=== PATIENT | female | born 1955 | race American Indian/Alaskan Native ===

== ENCOUNTER 2019-11-25 12:17 | Emergency (ER) | payer MEDICARE ==
[2019-11-25 13:49] LABS: Basophils # (Auto) 0.1 K/mm3 (0.0-0.1); Basophils % (Auto) 0.7 % (0.0-1.8); Eosinophils % (Auto) 0.4 % (0.0-4.3); Hematocrit 41.9 % (30.3-42.9); Hemoglobin 13.4 gm/dl (10.1-14.3); Lymphocytes # (Auto) 2.2 K/mm3 (1.2-5.4); Lymphocytes % (Auto) 31.4 % (13.4-35.0); Mean Corpuscular HGB Conc 32 % (30-34); Mean Corpuscular Volume 78 fl (79-97); Monocytes # (Auto) 0.4 K/mm3 (0.0-0.8); Monocytes % (Auto) 5.9 % (0.0-7.3); Platelet Count 250 K/mm3 (140-440); Red Blood Count 5.35 M/mm3 (3.65-5.03); Red Cell Distribution Width 14.7 % (13.2-15.2)
[2019-11-25 14:01] LABS: Bacteria,Urine 1+ /HPF (Negative); Bilirubin,Urine NEG (Negative); Blood,Urine NEG (Negative); Color,Urine Yellow (Yellow); Mucus,Urine FEW /HPF; Protein,Urine <15 mg/dL mg/dL (Negative); Urobilinogen,Urine < 2.0 mg/dL (<2.0)
[2019-11-25 14:04] LABS: BUN/Creatinine Ratio 14; Blood Urea Nitrogen 13 mg/dL (7-17); Calcium 10.6 mg/dL (8.4-10.2); Hemolysis Index 0
[2019-11-25 14:09] LABS: Amphetamine Screen,Urine PRESUMPTIVE NEGATIVE; Benzodiazepines Screen,Urine PRESUMPTIVE NEGATIVE; Cannabinoid Screen,Urine PRESUMPTIVE NEGATIVE; Cocaine Screen,Urine PRESUMPTIVE NEGATIVE; Methadone Screen,Urine PRESUMPTIVE NEGATIVE; Opiate Screen,Urine PRESUMPTIVE NEGATIVE
--- NOTE | 2019-11-25 14:13 | Emergency Department Report ---
ED Psych HPI - General Chief Complaint: Psych Stated Complaint: PSYCH EVAL Time Seen by Provider: 11/25/19 14:05 Source: patient Mode of arrival: Ambulatory - History of Present Illness Initial Comments: 64-year-old -[place] female presents to the emergency room reports from [facility] states that she was exhibiting aggressive behavior and has been off her meds. Patient has a current history of schizophrenia hypertension hypercholesterolemia. Patient resides at [facility]. It was sent over from [facility] [employer] - Related Data Home Medications Medication Instructions Recorded Confirmed Last Taken FLUoxetine [PROzac] 20 mg PO QDAY 03/26/16 05/14/16 Unknown Allergies Allergy/AdvReac Type Severity Reaction Status Date / Time No Known Allergies Allergy Unverified 03/28/16 11:16 ED Review of Systems ROS: Stated complaint: PSYCH EVAL Other details as noted in HPI ED Past Medical Hx - Past Medical History Previous Medical History?: Yes Hx Hypertension: Yes Hx Diabetes: Yes Hx GERD: Yes Hx Arthritis: Yes Hx Psychiatric Treatment: Yes (schizophrenia) Additional medical history: schz. high cholesterol. fibro - Surgical History Past Surgical History?: Yes Additional Surgical History: Bilateral tubal ligation - Social History Smoking Status: Never Smoker Substance Use Type: None - Medications Home Medications: Home Medications Medication Instructions Recorded Confirmed Last Taken Type FLUoxetine [PROzac] 20 mg PO QDAY 03/26/16 05/14/16 Unknown History ED Physical Exam - General Limitations: No Limitations ED Course Vital Signs 11/25/19 12:31 Temperature 97.5 F L Pulse Rate 118 H Respiratory 18 Rate Blood Pressure 180/77 O2 Sat by Pulse 100 Oximetry ED Medical Decision Making - Lab Data Result diagrams: 11/25/19 13:10 11/25/19 13:10 Critical care attestation.: If time is entered above; I have spent that time in minutes in the direct care of this critically ill patient, excluding procedure time. ED Disposition Condition: Stable
[2019-11-25 20:01] VITALS: BP 165/87
== END 2019-11-25 23:24 | disposition other institution (70) ==
LOC: ED 12:17
DX: R45.6 Violent behavior (principal); I10 Essential (primary) hypertension; E11.9 Type 2 diabetes mellitus without complications; K21.9 Gastro-esophageal reflux disease without esophagitis; M19.91 Primary osteoarthritis, unspecified site; F20.9 Schizophrenia, unspecified; E78.00 Pure hypercholesterolemia, unspecified; Z98.51 Tubal ligation status; Z79.899 Other long term (current) drug therapy
CPT/HCPCS: 36415; 80048; 80307; 80320; 81001; 85025; G0480

== ENCOUNTER 2020-01-19 17:53 | Inpatient (IN) | payer MEDICARE ==
[2020-01-19] MEDS: traZODone 50 MG TAB PO SCH ×2 (22:43→23:39)
[2020-01-19] MEDS: DIVALPROEX DR 500 MG TAB PO SCH ×2 (22:43→23:39)
[2020-01-19] MEDS: ASPIRIN 81 MG TAB CHEW PO SCH ×2 (22:43→23:42)
[2020-01-19] MEDS: amLODIPine 5 MG TAB PO SCH ×2 (22:44→23:40)
[2020-01-19] MEDS: risperiDONE 3 MG TAB PO SCH ×2 (22:44→23:41)
[2020-01-19] MEDS ORDERED: WATER FOR INJ Sterile (PF) 10 ML ONE (23:10)
[2020-01-19] MEDS ORDERED: ZIPRASIDONE MESYLATE 20 MG VIAL IM PRN (23:14)
--- NOTE | 2020-01-20 08:04 | Consultation ---
History of Present Illness - Reason for Consult Consult date: 01/20/20 Reason for consult: Paranoid Schizophrenia - History of Present Psychiatric Illness Siobhan Guido is a 64y/o female patient who was admitted to the [facility] after the personal senior living she was staying says she refused her medications and was paranoid, per nurse report this morning. The patient is known to me from previous visits. During my interview this morning, I found the patient sitting on the floor. She was dressed appropriately. She states she's feeling "fine." She makes good eye contact. She is a/o x 3. She has grandiose delusions. When asking the patient the the reason she was admitted into the hospital, she states, "my daughter, who is my legal guardian, brought me here. She had no business doing that because I had an appointment with my psychiatrist." She then says, "my psychiatrist was about to clear me of their services." The patient denies any psych diagnosis besides "depression." She says she was "cleared of all other psychiatric diagnoses." She denies any illicit drug use, alcohol or nicotine use. She denies being suicidal now or in the past. She also denies any homicidal thoughts. 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 The patient also denies any problems with her appetite or sleep pattern. 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" Highest level of education: "PHd dissertation" Marital status: Legal history: Denies History of abuse: Denies REVIEW OF SYSTEMS Constitutional: Negative for weight loss ENT: Negative for stridor Respiratory: Negative for cough or hemoptysis All other systems reviewed and are negative MENTAL STATUS EXAMINATION General Appearance: Dressed appropriately Behavior: calm, cooperative Mood: "fine" Affect: Congruent with stated mood Speech: Normal tone and pace Thought Process: Goal oriented Thought Content: Suicidal Ideation: Denies Homicidal Ideation: Denies Hallucinations: Denies Delusions: Grandiose Insight and Judgment: Limited Memory/Cognition: Limited Assessment Paranoid Schizophrenia Treatment Plan Patient will be admitted for inpatient psychiatric evaluation, medication adjustment and close monitoring The patient's behavior, mood, sleep and appetite will be closely monitored. Patient will be enrolled in individual and group therapeutic sessions and encouraged to attend. Patient will be provided with a safe and structured environment. Patient's physical health needs will be addressed by the Hospitalist. Hospitalist Consulted Labs including CBC, CMP, Lipid profile and Hemoglobin A1C ordered Social Assessment will be completed and the B2B Sales Manager will work with patient and family to ensure a suitable and safe disposition Medication adjustment will be made as clinically indicated Usual Wellness Worship/Preservation: Restarted Home medications Geodon 10mg q4h prn agitation or refusal of oral antipsychotics The patient agreed on the treatment plan, understood the risk, benefit, alternative treatment, potential consequence of no treatment, and gave informed consent. - Certification Statement This is an acknowledgement statement that Siobhan Guido is a 64y/o female who requires inpatient psychiatric admission for treatment which could reasonably be expected to improve the patient's condition for Paranoid Schizophrenia. Estimated period of time patient will need to remain in the hospital: [7] Plan for post-hospital care: [ Outpatient] Medications and Allergies Allergies Allergy/AdvReac Type Severity Reaction Status Date / Time No Known Allergies Allergy Verified 01/19/20 11:50 Home Medications Medication Instructions Recorded Confirmed Last Taken Type Amlodipine Besylate [Norvasc] 5 mg PO QHS 11/26/19 11/26/19 Unknown History Aspirin [Aspirin BABY CHEW TAB] 81 mg PO QHS 11/26/19 11/26/19 Unknown History Potassium Chloride [K-Dur] 8 meq PO QAM 11/26/19 11/26/19 Unknown History hydroCHLOROthiazide [HCTZ] 12.5 mg PO QDAY 11/26/19 01/20/20 Unknown History lisinopriL [Zestril TAB] 40 mg PO QDAY 11/26/19 01/20/20 Unknown History Divalproex [Harshil Zapata] 500 mg PO BID #60 tablet 12/13/19 Unknown Rx FLUoxetine [PROzac] 40 mg PO QDAY #60 capsule 12/13/19 01/20/20 Unknown Rx risperiDONE [RisperDAL] 3 mg PO BID #120 tablet 12/13/19 01/20/20 Unknown Rx traZODone [Desyrel] 50 mg PO QHS #30 tablet 12/13/19 01/20/20 Unknown Rx Active Meds: Active Medications Amlodipine Besylate (Amlodipine) 5 mg PO QHS [facility] Last Admin: 01/19/20 23:40 Dose: Not Given Documented by: Aspirin (Baby Aspirin) 81 mg PO QHS [facility] Last Admin: 01/19/20 23:42 Dose: Not Given Documented by: Divalproex Sodium (Depakote Dr) 500 mg PO BID [facility] Last Admin: 01/19/20 23:39 Dose: Not Given Documented by: Fluoxetine HCl (Prozac) 40 mg PO QDAY [facility] Hydrochlorothiazide (Hctz) 12.5 mg PO QDAY [facility] Lisinopril (Zestril) 40 mg PO QDAY [facility] Potassium Chloride (Klor-Con 8) 8 meq PO QAM [facility] Risperidone (Risperdal) 3 mg PO BID [facility] Last Admin: 01/19/20 23:41 Dose: Not Given Documented by: Trazodone HCl (Desyrel) 50 mg PO QHS [facility] Last Admin: 01/19/20 23:39 Dose: Not Given Documented by: Ziprasidone (Geodon) 10 mg IM Q4H PRN PRN Reason: Agitation Last Admin: 01/19/20 23:36 Dose: 10 mg Documented by: Mental Status Exam - Vital signs Last Vital Signs Temp 99.0 F 01/19/20 22:42 Pulse 86 01/19/20 22:42 Resp 18 01/19/20 22:42 BP 147/76 01/19/20 22:42 Pulse Ox 99 01/19/20 22:42 Results All other labs normal.
[2020-01-20] MEDS ORDERED: ZIPRASIDONE MESYLATE 20 MG VIAL IM PRN (08:44)
[2020-01-20] MEDS: DIVALPROEX DR 500 MG TAB PO SCH ×2 (10:46→21:21)
[2020-01-20] MEDS: hydroCHLOROthiazide 12.5 MG CAP PO SCH (11:56)
[2020-01-20] MEDS: FLUoxetine 20 MG CAP PO SCH (11:57)
[2020-01-20] MEDS: risperiDONE 3 MG TAB PO SCH ×2 (11:57→21:21)
[2020-01-20] MEDS: LISINOPRIL 40 MG TAB PO SCH (11:57)
[2020-01-20] MEDS: POTASSIUM CHLORIDE ER 8 MEQ TAB PO SCH (11:57)
--- NOTE | 2020-01-20 13:40 | Consultation ---
History of Present Illness - Reason for Consult Consult date: 01/20/20 - History of Present Illness Siobhan Guido is a 64y/o female patient who was admitted to the [facility] floor after the personal snf she was staying says she refused her medications and was paranoid, per nurse report this morning. Patient had an admitting diagnosis of major depression. Patient denies any suicide attempts or self-harm behavior. Hospitalist consult was called for medical management. Patient has a past medical history of osteoarthritis, fibromyalgia, hypertension and obesity hypoventilation syndrome. Patient denies having to take any medications. Patient reports that she manages her medical problems without medications. Patient denies any chest pain, shortness of breath, headache or visual disturbances. No fever chills. No cough or cold-like symptoms. Past History Past Medical History: hypertension, other (Osteoarthritis, fibromyalgia, obesity hypoventilation syndrome) Past Surgical History: No surgical history Social history: no significant social history Family history: no significant family history Medications and Allergies Allergies Allergy/AdvReac Type Severity Reaction Status Date / Time No Known Allergies Allergy Verified 01/19/20 11:50 Home Medications Medication Instructions Recorded Confirmed Last Taken Type Amlodipine Besylate [Norvasc] 5 mg PO QHS 11/26/19 11/26/19 Unknown History Aspirin [Aspirin BABY CHEW TAB] 81 mg PO QHS 11/26/19 11/26/19 Unknown History Potassium Chloride [K-Dur] 8 meq PO QAM 11/26/19 11/26/19 Unknown History hydroCHLOROthiazide [HCTZ] 12.5 mg PO QDAY 11/26/19 01/20/20 Unknown History lisinopriL [Zestril TAB] 40 mg PO QDAY 11/26/19 01/20/20 Unknown History Divalproex [Harshil Zapata] 500 mg PO BID #60 tablet 12/13/19 Unknown Rx FLUoxetine [PROzac] 40 mg PO QDAY #60 capsule 12/13/19 01/20/20 Unknown Rx risperiDONE [RisperDAL] 3 mg PO BID #120 tablet 12/13/19 01/20/20 Unknown Rx traZODone [Desyrel] 50 mg PO QHS #30 tablet 12/13/19 01/20/20 Unknown Rx Active Meds: Active Medications Amlodipine Besylate (Amlodipine) 5 mg PO QHS [facility] Last Admin: 01/19/20 23:40 Dose: Not Given Documented by: Aspirin (Baby Aspirin) 81 mg PO QHS [facility] Last Admin: 01/19/20 23:42 Dose: Not Given Documented by: Divalproex Sodium (Depakote Dr) 500 mg PO BID [facility] Last Admin: 01/20/20 10:46 Dose: Not Given Documented by: Fluoxetine HCl (Prozac) 40 mg PO QDAY [facility] Last Admin: 01/20/20 11:57 Dose: Not Given Documented by: Hydrochlorothiazide (Hctz) 12.5 mg PO QDAY [facility] Last Admin: 01/20/20 11:56 Dose: Not Given Documented by: Lisinopril (Zestril) 40 mg PO QDAY [facility] Last Admin: 01/20/20 11:57 Dose: Not Given Documented by: Potassium Chloride (Klor-Con 8) 8 meq PO [facility] Last Admin: 01/20/20 11:57 Dose: Not Given Documented by: Risperidone (Risperdal) 3 mg PO BID [facility] Last Admin: 01/20/20 11:57 Dose: Not Given Documented by: [facility]) [facility] Last Admin: 01/19/20 23:39 Dose: Not Given Documented by: Ziprasidone (Geodon) 10 mg IM Q4H PRN PRN Reason: Agitation Review of Systems All systems: negative Exam - Constitutional Vitals: Temp Pulse Resp BP Pulse Ox 99.0 F 86 18 147/76 99 01/19/20 22:42 01/19/20 22:42 01/19/20 22:42 01/19/20 22:42 01/19/20 22:42 General appearance: Present: no acute distress, well-nourished - EENT Eyes: Present: PERRL ENT: hearing intact, clear oral mucosa - Neck Neck: Present: supple, normal ROM - Respiratory Respiratory effort: normal Respiratory: bilateral: CTA - Cardiovascular Heart Sounds: Present: S1 & S2. Absent: rub, click - Extremities Extremities: pulses symmetrical, No edema Peripheral Pulses: within normal limits - Abdominal General gastrointestinal: Present: soft, non-tender, non-distended, normal bowel sounds Female genitourinary: Present: normal - Integumentary Integumentary: Present: clear, warm, dry - Musculoskeletal Musculoskeletal: gait normal, strength equal bilaterally - Psychiatric Psychiatric: appropriate mood/affect, intact judgment & insight - Neurologic Neurologic: CNII-XII intact, moves all extremities Assessment and Plan Major depression. Continue medications per psychiatry. Hypertension. Continue lisinopril, hydrochlorothiazide and Norvasc. Follow-up BMP. Osteoarthritis. Pain control.
[2020-01-20 16:42] LABS: Basophils # (Auto) 0.1 K/mm3 (0.0-0.1); Basophils % (Auto) 0.7 % (0.0-1.8); Eosinophils % (Auto) 0.6 % (0.0-4.3); Hematocrit 40.8 % (30.3-42.9); Lymphocytes # (Auto) 2.2 K/mm3 (1.2-5.4); Lymphocytes % (Auto) 28.6 % (13.4-35.0); Mean Corpuscular HGB Conc 32 % (30-34); Mean Corpuscular Volume 77 fl (79-97); Monocytes # (Auto) 0.6 K/mm3 (0.0-0.8); Monocytes % (Auto) 8.4 % (0.0-7.3); Platelet Count 259 K/mm3 (140-440); Red Blood Count 5.29 M/mm3 (3.65-5.03); Red Cell Distribution Width 16.1 % (13.2-15.2)
[2020-01-20 16:57] LABS: Alanine Aminotransferase 7 units/L (7-56); Albumin 4.1 g/dL (3.9-5); BUN/Creatinine Ratio 12; Blood Urea Nitrogen 12 mg/dL (7-17); Calcium 10.5 mg/dL (8.4-10.2); Chol/HDL Ratio 3.26 %; HDL Cholesterol 61 mg/dL (40-59); Hemolysis Index 1; LDL Cholesterol,Direct 133 mg/dL (50-130)
[2020-01-20] MEDS: amLODIPine 5 MG TAB PO SCH (21:19)
[2020-01-20] MEDS: ASPIRIN 81 MG TAB CHEW PO SCH (21:20)
[2020-01-20] MEDS: traZODone 50 MG TAB PO SCH (21:21)
--- NOTE | 2020-01-21 07:44 | Progress Note ---
Subjective Date of service: 01/21/20 Principal diagnosis: Paranoid Schizophrenia Subjective Comment: The patient's medical record was reviewed and the patient's progress was discussed with the nursing staff. The nurse note states the patient is alert and oriented x 3, irritable, able to make needs known, medication compliant. The patient took medication after encouragement. She stated we are giving her wrong medication that her pcp took her off medication. Disorganized thoughts. She ate 100% of bedtime snack.She denies si/hi, denies a/v/h. The patient stated that her daughter brought her here for no reason. Her affect is flat. During my interview the patient is sitting in the dayroom, coloring. She is a/o x 3. She is calm and cooperative, but never looks up at me. She continues on with her task during the interview. The patient is paranoid and delusional. She says she "feels better." She says she's here because "my daughter been telling her regular lies about me." She says, "I have no idea what lies they told them this time." She says "they say I'm not taking medications that I don't have." She says she slept "good." She denies any problems with her appetite. The patient denies SI/HI, stating "I've never been suicidal." She also denies hallucinations of any kind. She says, "of course not. I don't have any mental illness." Reason for continued inpatient treatment: The patient is paranoid and delusional. She is noncompliant with care. REVIEW OF SYSTEMS Constitutional: Negative for weight loss ENT: Negative for stridor Respiratory: Negative for cough or hemoptysis All other systems reviewed and are negative MENTAL STATUS EXAMINATION General Appearance: Dressed appropriately Behavior: calm, cooperative Mood: "feel better" Affect: Congruent with stated mood Speech: Normal tone and pace Thought Process: Goal oriented Thought Content: Suicidal Ideation: Denies Homicidal Ideation: Denies Hallucinations: Denies Delusions: Grandiose, paranoid Insight and Judgment: Limited Memory/Cognition: Limited Assessment Paranoid Schizophrenia Treatment Plan Patient will be admitted for inpatient psychiatric evaluation, medication adjustment and close monitoring The patient's behavior, mood, sleep and appetite will be closely monitored. Patient will be enrolled in individual and group therapeutic sessions and encouraged to attend. Patient will be provided with a safe and structured environment. Patient's physical health needs will be addressed by the Hospitalist. Hospitalist Consulted Labs including CBC, CMP, Lipid profile and Hemoglobin A1C ordered Social Assessment will be completed and the Personnel Monitor will work with patient and family to ensure a suitable and safe disposition Medication adjustment will be made as clinically indicated Usual Wellness [facility]aritan/Preservation: No changes to medications after restarting home meds. They patient has been off her home medications which has caused her relapse. Geodon 10mg q4h prn agitation or refusal of oral antipsychotics The patient agreed on the treatment plan, understood the risk, benefit, alternative treatment, potential consequence of no treatment, and gave informed consent. - Certification Statement Estimated period of time patient will need to remain in the hospital: [7] Plan for post-hospital care: [ Outpatient] Medications and Allergies Allergies Allergy/AdvReac Type Severity Reaction Status Date / Time No Known Allergies Allergy Verified 01/19/20 11:50 Home Medications Medication Instructions Recorded Confirmed Last Taken Type Amlodipine Besylate [Norvasc] 5 mg PO QHS 11/26/19 01/21/20 Unknown History Aspirin [Aspirin BABY CHEW TAB] 81 mg PO QHS 11/26/19 01/21/20 Unknown History Potassium Chloride [K-Dur] 8 meq PO QAM 11/26/19 01/21/20 Unknown History hydroCHLOROthiazide [HCTZ] 12.5 mg PO QDAY 11/26/19 01/20/20 Unknown History lisinopriL [Zestril TAB] 40 mg PO QDAY 11/26/19 01/20/20 Unknown History Divalproex [Harshil Zapata] 500 mg PO BID #60 tablet 12/13/19 01/21/20 Unknown Rx FLUoxetine [PROzac] 40 mg PO QDAY #60 capsule 12/13/19 01/20/20 Unknown Rx risperiDONE [RisperDAL] 3 mg PO BID #120 tablet 12/13/19 01/20/20 Unknown Rx traZODone [Desyrel] 50 mg PO QHS #30 tablet 12/13/19 01/20/20 Unknown Rx Active Meds: Active Medications Amlodipine Besylate (Amlodipine) 5 mg PO QHS [facility] Last Admin: 01/20/20 21:19 Dose: 5 mg Documented by: Aspirin (Baby Aspirin) 81 mg PO QHS [facility] Last Admin: 01/20/20 21:20 Dose: 81 mg Documented by: Divalproex Sodium (Depakote Dr) 500 mg PO BID [facility] Last Admin: 01/20/20 21:21 Dose: 500 mg Documented by: Fluoxetine HCl (Prozac) 40 mg PO QDAY [facility] Last Admin: 01/20/20 11:57 Dose: Not Given Documented by: Hydrochlorothiazide (Hctz) 12.5 mg PO QDAY [facility] Last Admin: 01/20/20 11:56 Dose: Not Given Documented by: Lisinopril (Zestril) 40 mg PO QDAY [facility] Last Admin: 01/20/20 11:57 Dose: Not Given Documented by: Potassium Chloride (Klor-Con 8) 8 meq PO [facility] Last Admin: 01/20/20 11:57 Dose: Not Given Documented by: Risperidone (Risperdal) 3 mg PO BID [facility] Last Admin: 01/20/20 21:21 Dose: 3 mg Documented by: Trazodone HCl (Desyrel) 50 mg PO QHS [facility] Last Admin: 01/20/20 21:21 Dose: 50 mg Documented by: Ziprasidone (Geodon) 10 mg IM Q4H PRN PRN Reason: Agitation Results - Results Labs/Vitals: Laboratory Last Values WBC 7.6 K/mm3 (4.5-11.0) 01/20/20 16:25 RBC 5.29 M/mm3 (3.65-5.03) H 01/20/20 16:25 Hgb 13.0 gm/dl (10.1-14.3) 01/20/20 16:25 Hct 40.8 % (30.3-42.9) 01/20/20 16:25 MCV 77 fl (79-97) L 01/20/20 16:25 MCH 25 pg (28-32) L 01/20/20 16:25 MCHC 32 % (30-34) 01/20/20 16:25 RDW 16.1 % (13.2-15.2) H 01/20/20 16:25 Plt Count 259 K/mm3 (140-440) 01/20/20 16:25 Lymph % (Auto) 28.6 % (13.4-35.0) 01/20/20 16:25 [place] % (Auto) 8.4 % (0.0-7.3) H 01/20/20 16:25 Eos % (Auto) 0.6 % (0.0-4.3) 01/20/20 16:25 Baso % (Auto) 0.7 % (0.0-1.8) 01/20/20 16:25 Lymph # 2.2 K/mm3 (1.2-5.4) 01/20/20 16:25 [place] # 0.6 K/mm3 (0.0-0.8) 01/20/20 16:25 Eos # 0.0 K/mm3 (0.0-0.4) 01/20/20 16:25 Baso # 0.1 K/mm3 (0.0-0.1) 01/20/20 16:25 Seg Neutrophils % 61.7 % (40.0-70.0) 01/20/20 16:25 Seg Neutrophils # 4.7 K/mm3 (1.8-7.7) 01/20/20 16:25 Sodium 139 mmol/L (137-145) 01/20/20 16:25 Potassium 3.7 mmol/L (3.6-5.0) 01/20/20 16:25 Chloride 102.3 mmol/L (98-107) 01/20/20 16:25 Carbon Dioxide 24 mmol/L (22-30) 01/20/20 16:25 Anion Gap 16 mmol/L 01/20/20 16:25 BUN 12 mg/dL (7-17) 01/20/20 16:25 Creatinine 1.0 mg/dL (0.7-1.2) 01/20/20 16:25 Estimated GFR > 60 ml/min 01/20/20 16:25 BUN/Creatinine Ratio 12 % 01/20/20 16:25 Glucose 97 mg/dL (65-100) 01/20/20 16:25 POC Glucose 103 (70-105) 01/21/20 06:56 Hemoglobin A1c 6.2 % (4-6) H 01/20/20 16:25 Calcium 10.5 mg/dL (8.4-10.2) H 01/20/20 16:25 Total Bilirubin 0.40 mg/dL (0.1-1.2) 01/20/20 16:25 AST 15 units/L (5-40) 01/20/20 16:25 ALT 7 units/L (7-56) 01/20/20 16:25 Alkaline Phosphatase 63 units/L (35-129) 01/20/20 16:25 Total Protein 8.0 g/dL (6.3-8.2) 01/20/20 16:25 Albumin 4.1 g/dL (3.9-5) 01/20/20 16:25 Albumin/Globulin Ratio 1.1 % 01/20/20 16:25 Triglycerides 63 mg/dL (2-149) 01/20/20 16:25 Cholesterol 199 mg/dL (50-199) 01/20/20 16:25 LDL Cholesterol Direct 133 mg/dL (50-130) H 01/20/20 16:25 HDL Cholesterol 61 mg/dL (40-59) H 01/20/20 16:25 Cholesterol/HDL Ratio 3.26 % 01/20/20 16:25 TSH 1.680 mlU/mL (0.270-4.200) 01/20/20 16:25 Last Vital Signs Temp 97.5 F L 01/21/20 07:35 Pulse 89 01/21/20 07:35 Resp 18 01/21/20 07:35 BP 126/52 01/21/20 07:35 Pulse Ox 99 01/21/20 07:35
[2020-01-21] MEDS: FLUoxetine 20 MG CAP PO SCH (09:34)
[2020-01-21] MEDS: POTASSIUM CHLORIDE ER 8 MEQ TAB PO SCH (09:34)
[2020-01-21] MEDS: LISINOPRIL 40 MG TAB PO SCH (09:34)
[2020-01-21] MEDS: hydroCHLOROthiazide 12.5 MG CAP PO SCH (09:35)
[2020-01-21] MEDS: DIVALPROEX DR 500 MG TAB PO SCH ×2 (09:35→21:08)
[2020-01-21] MEDS: risperiDONE 3 MG TAB PO SCH ×2 (09:35→21:08)
[2020-01-21] MEDS: amLODIPine 5 MG TAB PO SCH (21:08)
[2020-01-21] MEDS: traZODone 50 MG TAB PO SCH (21:08)
[2020-01-21] MEDS: ASPIRIN 81 MG TAB CHEW PO SCH (21:08)
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
[2020-01-22] MEDS: FLUoxetine 20 MG CAP PO SCH (09:02)
[2020-01-22] MEDS: DIVALPROEX DR 500 MG TAB PO SCH ×2 (09:03→21:21)
[2020-01-22] MEDS: POTASSIUM CHLORIDE ER 8 MEQ TAB PO SCH (09:04)
[2020-01-22] MEDS: LISINOPRIL 40 MG TAB PO SCH (09:04)
[2020-01-22] MEDS: risperiDONE 3 MG TAB PO SCH ×2 (09:04→21:22)
[2020-01-22] MEDS: hydroCHLOROthiazide 12.5 MG CAP PO SCH (09:04)
[2020-01-22] MEDS: traZODone 50 MG TAB PO SCH (21:21)
[2020-01-22] MEDS: amLODIPine 5 MG TAB PO SCH (21:22)
[2020-01-22] MEDS: ASPIRIN 81 MG TAB CHEW PO SCH (21:22)
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
[2020-01-23] MEDS: FLUoxetine 20 MG CAP PO SCH (09:33)
[2020-01-23] MEDS: risperiDONE 3 MG TAB PO SCH ×2 (09:33→22:04)
[2020-01-23] MEDS: hydroCHLOROthiazide 12.5 MG CAP PO SCH (09:33)
[2020-01-23] MEDS: DIVALPROEX DR 500 MG TAB PO SCH ×2 (09:33→22:04)
[2020-01-23] MEDS: POTASSIUM CHLORIDE ER 8 MEQ TAB PO SCH (09:33)
[2020-01-23] MEDS: LISINOPRIL 40 MG TAB PO SCH (09:41)
[2020-01-23] MEDS: ASPIRIN 81 MG TAB CHEW PO SCH (22:04)
[2020-01-23] MEDS: amLODIPine 5 MG TAB PO SCH (22:05)
[2020-01-23] MEDS: traZODone 50 MG TAB PO SCH (22:05)
--- NOTE | 2020-01-24 06:52 | Progress Note ---
Subjective Date of service: 01/24/20 Principal diagnosis: Paranoid Schizophrenia Subjective Comment: Per Nurse Note: Pt received at the beginning of shift in activity room coloring at 1930; spent her evening in the activity room, pt is alert oriented x3, calm and cooperative, no interaction with other peers, keeps to herself coloring, she is complaint with her medication, good appetite, affect and mood is appropriate, denies si/hi, denies a/v/h, pt stated that she is doing good, no distress noted, safety measures in place, will continue to monitor for safety Per Provider Patient seen this a.m. in bed, patient reports sleeping. Last night, denies any sleep disturbances any nightmares. Patient reports she has been taking all of her medications now, denies any auditory or visual hallucinations. Patient also reports reduced anger towards her kids and thinking of potential visit to kids by next week but thus states that shes got a good reason to be angry at them because sometimes she feels like they only maje her take psychiatric medication s. Patient denies any SI or HI. Patient said the food here does not taste very good but appetite is fine. Reason for continued inpatient treatment: Medication compliance improved, improved mood, improved sleep and reduced anger projected towards her kids. Will monitor for stability of behavior for another 24 hours. MENTAL STATUS EXAMINATION General Appearance and Behavior: Age appropriate, good hygiene, wearing appropriate clothes, good, cooperative with questioning and polite Cooperation: Participating/engaged Psychomotor Behavior: unremarkable and within normal limits Mood: good Affect and affective range:congruent with mood Thought Process: Fluent/Logical, Thought Content: Paranoid and delusions Speech: Normal volume Intellectual Functioning: Average Suicidal Ideation: Denies SI Homicidal Ideation: Denies HI Impulse Control: Impaired Insight and Judgment: Fair insight Memory: Normal Attention: Normal Orientation: Alert, oriented Assessment and Plan - Patient Problems (1) Schizophrenia, paranoid Current Visit: Yes Status: Acute (2) Psychotic disorder with delusions Current Visit: Yes Status: Acute Treatment Plan Continue current medication regimen and nurse to observe for compliance. will continue to observe for mood stability. The patient's behavior, mood, sleep and appetite will be closely monitored. Patient will be enrolled in individual and group therapeutic sessions and encouraged to attend. Patient will be provided with a safe and structured environment. Patient's physical health needs will be addressed by the Hospitalist. Hospitalist Consulted Labs including CBC, CMP, Lipid profile and Hemoglobin A1C ordered Social Assessment will be completed and the Cargo Service Supervisor will work with patient and family to ensure a suitable and safe disposition Medication adjustment will be made as clinically indicated Usual Wellness Roman Catholic/Preservation: Restarted Home medications Geodon 10mg q4h prn agitation or refusal of oral antipsychotics The patient agreed on the treatment plan, understood the risk, benefit, alternative treatment, potential consequence of no treatment, and gave informed consent. - Certification Statement This is an acknowledgement statement that Siobhan Guido is a 64y/o female who requires inpatient psychiatric admission for treatment which could reasonably be expected to improve the patient's condition for Paranoid Schizophrenia. Estimated period of time patient will need to remain in the hospital: [4] Plan for post-hospital care: [ Outpatient] Assessment and Plan - Patient Problems (1) Schizophrenia, paranoid Current Visit: Yes Status: Acute (2) Psychotic disorder with delusions Current Visit: Yes Status: Acute Medications and Allergies Allergies Allergy/AdvReac Type Severity Reaction Status Date / Time No Known Allergies Allergy Verified 01/19/20 11:50 Home Medications Medication Instructions Recorded Confirmed Last Taken Type Amlodipine Besylate [Norvasc] 5 mg PO QHS 11/26/19 01/21/20 Unknown History Aspirin [Aspirin BABY CHEW TAB] 81 mg PO QHS 11/26/19 01/21/20 Unknown History Potassium Chloride [K-Dur] 8 meq PO QAM 11/26/19 01/21/20 Unknown History hydroCHLOROthiazide [HCTZ] 12.5 mg PO QDAY 11/26/19 01/20/20 Unknown History lisinopriL [Zestril TAB] 40 mg PO QDAY 11/26/19 01/20/20 Unknown History Divalproex [Harshil Zapata] 500 mg PO BID #60 tablet 12/13/19 01/21/20 Unknown Rx FLUoxetine [PROzac] 40 mg PO QDAY #60 capsule 12/13/19 01/20/20 Unknown Rx risperiDONE [RisperDAL] 3 mg PO BID #120 tablet 12/13/19 01/20/20 Unknown Rx traZODone [Desyrel] 50 mg PO QHS #30 tablet 12/13/19 01/20/20 Unknown Rx Active Meds: Active Medications Amlodipine Besylate (Amlodipine) 5 mg PO QHS [facility] Last Admin: 01/23/20 22:05 Dose: 5 mg Documented by: Aspirin (Baby Aspirin) 81 mg PO QHS [facility] Last Admin: 01/23/20 22:04 Dose: 81 mg Documented by: Divalproex Sodium (Depakote Dr) 500 mg PO BID [facility] Last Admin: 01/23/20 22:04 Dose: 500 mg Documented by: Fluoxetine HCl (Prozac) 40 mg PO QDAY [facility] Last Admin: 01/23/20 09:33 Dose: 40 mg Documented by: Hydrochlorothiazide (Hctz) 12.5 mg PO QDAY [facility] Last Admin: 01/23/20 09:33 Dose: 12.5 mg Documented by: Lisinopril (Zestril) 40 mg PO QDAY [facility] Last Admin: 01/23/20 09:41 Dose: 40 mg Documented by: Potassium Chloride (Klor-Con 8) 8 meq PO [facility] Last Admin: 01/23/20 09:33 Dose: 8 meq Documented by: Risperidone (Risperdal) 3 mg PO BID [facility] Last Admin: 01/23/20 22:04 Dose: 3 mg Documented by: Trazodone HCl (Desyrel) 50 mg PO QHS [facility] Last Admin: 01/23/20 22:05 Dose: 50 mg Documented by: Ziprasidone (Geodon) 10 mg IM Q4H PRN PRN Reason: Agitation Results - Results Labs/Vitals: Laboratory Last Values WBC 7.6 K/mm3 (4.5-11.0) 01/20/20 16:25 RBC 5.29 M/mm3 (3.65-5.03) H 01/20/20 16:25 Hgb 13.0 gm/dl (10.1-14.3) 01/20/20 16:25 Hct 40.8 % (30.3-42.9) 01/20/20 16:25 MCV 77 fl (79-97) L 01/20/20 16:25 MCH 25 pg (28-32) L 01/20/20 16:25 MCHC 32 % (30-34) 01/20/20 16:25 RDW 16.1 % (13.2-15.2) H 01/20/20 16:25 Plt Count 259 K/mm3 (140-440) 01/20/20 16:25 Lymph % (Auto) 28.6 % (13.4-35.0) 01/20/20 16:25 [place] % (Auto) 8.4 % (0.0-7.3) H 01/20/20 16:25 Eos % (Auto) 0.6 % (0.0-4.3) 01/20/20 16:25 Baso % (Auto) 0.7 % (0.0-1.8) 01/20/20 16:25 Lymph # 2.2 K/mm3 (1.2-5.4) 01/20/20 16:25 [place] # 0.6 K/mm3 (0.0-0.8) 01/20/20 16:25 Eos # 0.0 K/mm3 (0.0-0.4) 01/20/20 16:25 Baso # 0.1 K/mm3 (0.0-0.1) 01/20/20 16:25 Seg Neutrophils % 61.7 % (40.0-70.0) 01/20/20 16:25 Seg Neutrophils # 4.7 K/mm3 (1.8-7.7) 01/20/20 16:25 Sodium 139 mmol/L (137-145) 01/20/20 16:25 Potassium 3.7 mmol/L (3.6-5.0) 01/20/20 16:25 Chloride 102.3 mmol/L (98-107) 01/20/20 16:25 Carbon Dioxide 24 mmol/L (22-30) 01/20/20 16:25 Anion Gap 16 mmol/L 01/20/20 16:25 BUN 12 mg/dL (7-17) 01/20/20 16:25 Creatinine 1.0 mg/dL (0.7-1.2) 01/20/20 16:25 Estimated GFR > 60 ml/min 01/20/20 16:25 BUN/Creatinine Ratio 12 % 01/20/20 16:25 Glucose 97 mg/dL (65-100) 01/20/20 16:25 POC Glucose 143 (70-105) H 01/22/20 16:33 Hemoglobin A1c 6.2 % (4-6) H 01/20/20 16:25 Calcium 10.5 mg/dL (8.4-10.2) H 01/20/20 16:25 Total Bilirubin 0.40 mg/dL (0.1-1.2) 01/20/20 16:25 AST 15 units/L (5-40) 01/20/20 16:25 ALT 7 units/L (7-56) 01/20/20 16:25 Alkaline Phosphatase 63 units/L (35-129) 01/20/20 16:25 Total Protein 8.0 g/dL (6.3-8.2) 01/20/20 16:25 Albumin 4.1 g/dL (3.9-5) 01/20/20 16:25 Albumin/Globulin Ratio 1.1 % 01/20/20 16:25 Triglycerides 63 mg/dL (2-149) 01/20/20 16:25 Cholesterol 199 mg/dL (50-199) 01/20/20 16:25 LDL Cholesterol Direct 133 mg/dL (50-130) H 01/20/20 16:25 HDL Cholesterol 61 mg/dL (40-59) H 01/20/20 16:25 Cholesterol/HDL Ratio 3.26 % 01/20/20 16:25 TSH 1.680 mlU/mL (0.270-4.200) 01/20/20 16:25 Last Vital Signs Temp 98.4 F 01/23/20 19:48 Pulse 92 H 01/23/20 22:05 Resp 20 01/23/20 19:48 BP 118/53 01/23/20 22:05 Pulse Ox 98 01/23/20 19:48
[2020-01-24] MEDS: FLUoxetine 20 MG CAP PO SCH (09:30)
[2020-01-24] MEDS: risperiDONE 3 MG TAB PO SCH ×2 (09:35→21:03)
[2020-01-24] MEDS: POTASSIUM CHLORIDE ER 8 MEQ TAB PO SCH (09:36)
[2020-01-24] MEDS: DIVALPROEX DR 500 MG TAB PO SCH ×2 (09:40→21:03)
[2020-01-24] MEDS: LISINOPRIL 40 MG TAB PO SCH (09:44)
[2020-01-24] MEDS: hydroCHLOROthiazide 12.5 MG CAP PO SCH (09:44)
[2020-01-24] MEDS: amLODIPine 5 MG TAB PO SCH (21:02)
[2020-01-24] MEDS: ASPIRIN 81 MG TAB CHEW PO SCH (21:03)
[2020-01-24] MEDS: traZODone 50 MG TAB PO SCH (21:04)
--- NOTE | 2020-01-25 06:51 | Progress Note ---
Subjective Date of service: 01/25/20 Principal diagnosis: Paranoid Schizophrenia Subjective Comment: Per Nurse Note: Patient was calm and cooperative through the evening. She interacted a small amount with her peers. Patient spent some time coloring. She was medication compliant. Patient denies si/hi/ah/vh. She stated she feels more like herself now. Patient's appetite is good. Will continue to monitor patient for safety. Per Provider Patient awake and walking towards social room. I interacted with patient, she reports sleeping well, denies any disturbances. Patient endorses a good and stable mood, denies any abnormal thoughts or behavior since last seen yesterday and has been compliant with all medications. Patient denies any AVH hallucinations. No projected negative feelings towards her kids today. Reason for continued inpatient treatment: Medication compliance noted, improved mood, better sleep and reduced anger projected towards her kids. Will monitor for stability of behavior for another 24 hours. MENTAL STATUS EXAMINATION General Appearance and Behavior: Age appropriate, good hygiene, wearing appropriate clothes, good, cooperative with questioning and polite Cooperation: Participating/engaged Psychomotor Behavior: unremarkable and within normal limits Mood: good Affect and affective range:congruent with mood Thought Process: Fluent/Logical Thought Content: Speech: Normal volume Intellectual Functioning: Average Suicidal Ideation: Denies SI Homicidal Ideation: Denies HI Impulse Control: Unimpaired Insight and Judgment: Good insight Memory: Normal Attention: Normal Orientation: Alert, oriented Assessment and Plan - Patient Problems (1) Schizophrenia, paranoid Current Visit: Yes Status: Acute (2) Psychotic disorder with delusions Current Visit: Yes Status: Acute Treatment Plan Continue current medication regimen and nurse to observe for compliance. will continue to observe for mood stability. The patient's behavior, mood, sleep and appetite will be closely monitored. Patient will be enrolled in individual and group therapeutic sessions and encouraged to attend. Patient will be provided with a safe and structured environment. Patient's physical health needs will be addressed by the Hospitalist. Hospitalist Consulted Labs including CBC, CMP, Lipid profile and Hemoglobin A1C ordered Social Assessment will be completed and the Heat Treater Apprentice will work with patient and family to ensure a suitable and safe disposition Medication adjustment will be made as clinically indicated Usual Wellness Taoism/Preservation: Restarted Home medications Geodon 10mg q4h prn agitation or refusal of oral antipsychotics The patient agreed on the treatment plan, understood the risk, benefit, alternative treatment, potential consequence of no treatment, and gave informed consent. - Certification Statement This is an acknowledgement statement that Siobhan Guido is a 64y/o female who requires inpatient psychiatric admission for treatment which could reasonably be expected to improve the patient's condition for Paranoid Schizophrenia. Estimated period of time patient will need to remain in the hospital: [3] Plan for post-hospital care: [ Outpatient] Assessment and Plan - Patient Problems (1) Schizophrenia, paranoid Current Visit: Yes Status: Acute (2) Psychotic disorder with delusions Current Visit: Yes Status: Acute Medications and Allergies Allergies Allergy/AdvReac Type Severity Reaction Status Date / Time No Known Allergies Allergy Verified 01/19/20 11:50 Home Medications Medication Instructions Recorded Confirmed Last Taken Type Amlodipine Besylate [Norvasc] 5 mg PO QHS 11/26/19 01/21/20 Unknown History Aspirin [Aspirin BABY CHEW TAB] 81 mg PO QHS 11/26/19 01/21/20 Unknown History Potassium Chloride [K-Dur] 8 meq PO QAM 11/26/19 01/21/20 Unknown History hydroCHLOROthiazide [HCTZ] 12.5 mg PO QDAY 11/26/19 01/20/20 Unknown History lisinopriL [Zestril TAB] 40 mg PO QDAY 11/26/19 01/20/[address] [Harshil Zapata] 500 mg PO BID #60 tablet 12/13/19 01/21/20 Unknown Rx FLUoxetine [PROzac] 40 mg PO QDAY #60 capsule 12/13/19 01/20/20 Unknown Rx risperiDONE [RisperDAL] 3 mg PO BID #120 tablet 12/13/19 01/20/20 Unknown Rx traZODone [Desyrel] 50 mg PO QHS #30 tablet 12/13/19 01/20/20 Unknown Rx Active Meds: Active Medications Amlodipine Besylate (Amlodipine) 5 mg PO QHS [facility] Last Admin: 01/24/20 21:02 Dose: 5 mg Documented by: Aspirin (Baby Aspirin) 81 mg PO QHS [facility] Last Admin: 01/24/20 21:03 Dose: 81 mg Documented by: Divalproex Sodium (Harshil Zapata) 500 mg PO BID [facility] Last Admin: 01/24/20 21:03 Dose: 500 mg Documented by: Fluoxetine HCl (Prozac) 40 mg PO QDAY [facility] Last Admin: 01/24/20 09:30 Dose: 40 mg Documented by: Hydrochlorothiazide (Hctz) 12.5 mg PO QDAY [facility] Last Admin: 01/24/20 09:44 Dose: Not Given Documented by: Lisinopril (Zestril) 40 mg PO QDAY [facility] Last Admin: 01/24/20 09:44 Dose: Not Given Documented by: Potassium Chloride (Klor-Con 8) 8 meq PO QAM [facility] Last Admin: 01/24/20 09:36 Dose: 8 meq Documented by: Risperidone (Risperdal) 3 mg PO BID [facility] Last Admin: 01/24/20 21:03 Dose: 3 mg Documented by: Trazodone HCl (Desyrel) 50 mg PO QHS [facility] Last Admin: 01/24/20 21:04 Dose: 50 mg Documented by: Ziprasidone (Geodon) 10 mg IM Q4H PRN PRN Reason: Agitation Results - Results Labs/Vitals: Laboratory Last Values WBC 7.6 K/mm3 (4.5-11.0) 01/20/20 16:25 RBC 5.29 M/mm3 (3.65-5.03) H 01/20/20 16:25 Hgb 13.0 gm/dl (10.1-14.3) 01/20/20 16:25 Hct 40.8 % (30.3-42.9) 01/20/20 16:25 MCV 77 fl (79-97) L 01/20/20 16:25 MCH 25 pg (28-32) L 01/20/20 16:25 MCHC 32 % (30-34) 01/20/20 16:25 RDW 16.1 % (13.2-15.2) H 01/20/20 16:25 Plt Count 259 K/mm3 (140-440) 01/20/20 16:25 Lymph % (Auto) 28.6 % (13.4-35.0) 01/20/20 16:25 [place] % (Auto) 8.4 % (0.0-7.3) H 01/20/20 16:25 Eos % (Auto) 0.6 % (0.0-4.3) 01/20/20 16:25 Baso % (Auto) 0.7 % (0.0-1.8) 01/20/20 16:25 Lymph # 2.2 K/mm3 (1.2-5.4) 01/20/20 16:25 [place] # 0.6 K/mm3 (0.0-0.8) 01/20/20 16:25 Eos # 0.0 K/mm3 (0.0-0.4) 01/20/20 16:25 Baso # 0.1 K/mm3 (0.0-0.1) 01/20/20 16:25 Seg Neutrophils % 61.7 % (40.0-70.0) 01/20/20 16:25 Seg Neutrophils # 4.7 K/mm3 (1.8-7.7) 01/20/20 16:25 Sodium 139 mmol/L (137-145) 01/20/20 16:25 Potassium 3.7 mmol/L (3.6-5.0) 01/20/20 16:25 Chloride 102.3 mmol/L (98-107) 01/20/20 16:25 Carbon Dioxide 24 mmol/L (22-30) 01/20/20 16:25 Anion Gap 16 mmol/L 01/20/20 16:25 BUN 12 mg/dL (7-17) 01/20/20 16:25 Creatinine 1.0 mg/dL (0.7-1.2) 01/20/20 16:25 Estimated GFR > 60 ml/min 01/20/20 16:25 BUN/Creatinine Ratio 12 % 01/20/20 16:25 Glucose 97 mg/dL (65-100) 01/20/20 16:25 POC Glucose 143 (70-105) H 01/22/20 16:33 Hemoglobin A1c 6.2 % (4-6) H 01/20/20 16:25 Calcium 10.5 mg/dL (8.4-10.2) H 01/20/20 16:25 Total Bilirubin 0.40 mg/dL (0.1-1.2) 01/20/20 16:25 AST 15 units/L (5-40) 01/20/20 16:25 ALT 7 units/L (7-56) 01/20/20 16:25 Alkaline Phosphatase 63 units/L (35-129) 01/20/20 16:25 Total Protein 8.0 g/dL (6.3-8.2) 01/20/20 16:25 Albumin 4.1 g/dL (3.9-5) 01/20/20 16:25 Albumin/Globulin Ratio 1.1 % 01/20/20 16:25 Triglycerides 63 mg/dL (2-149) 01/20/20 16:25 Cholesterol 199 mg/dL (50-199) 01/20/20 16:25 LDL Cholesterol Direct 133 mg/dL (50-130) H 01/20/20 16:25 HDL Cholesterol 61 mg/dL (40-59) H 01/20/20 16:25 Cholesterol/HDL Ratio 3.26 % 01/20/20 16:25 TSH 1.680 mlU/mL (0.270-4.200) 01/20/20 16:25 Last Vital Signs Temp 98.6 F 01/24/20 20:14 Pulse 111 H 01/24/20 21:02 Resp 18 01/24/20 20:14 BP 135/77 01/24/20 21:02 Pulse Ox 98 01/24/20 20:14
[2020-01-25] MEDS: hydroCHLOROthiazide 12.5 MG CAP PO SCH (09:07)
[2020-01-25] MEDS: LISINOPRIL 40 MG TAB PO SCH (09:08)
[2020-01-25] MEDS: risperiDONE 3 MG TAB PO SCH ×2 (09:09→21:44)
[2020-01-25] MEDS: POTASSIUM CHLORIDE ER 8 MEQ TAB PO SCH (09:09)
[2020-01-25] MEDS: FLUoxetine 20 MG CAP PO SCH (09:10)
[2020-01-25] MEDS: DIVALPROEX DR 500 MG TAB PO SCH ×2 (09:10→21:45)
[2020-01-25] MEDS ORDERED: PALIPERIDONE PALMITATE 234 MG/1.5 ML SYRINGE IM SCH (18:45)
[2020-01-25] MEDS: ASPIRIN 81 MG TAB CHEW PO SCH (21:44)
[2020-01-25] MEDS: amLODIPine 5 MG TAB PO SCH (21:44)
[2020-01-25] MEDS: traZODone 50 MG TAB PO SCH (21:44)
--- NOTE | 2020-01-26 06:50 | Progress Note ---
Subjective Date of service: 01/26/20 Principal diagnosis: Paranoid Schizophrenia Subjective Comment: Per Nurse Note: Patient interacted more tonight with her peers and staff. She has been pleasant and cooperative all evening. Patient was medication compliant. Will continue to monitor patient for safety. Per Provider Patient evaluated by me this A.M. in room. She reports sleeping well, denies AVH, no behaviroal disturbances reported by nurses. Patient has no complaint. Reason for continued inpatient treatment: Medication compliance noted, improved mood, better sleep noted. Invega shot to be administered today, will observe for medication side effects. if tolerated well after 24 hours, to conitnue oral meds for at least 1 week. MENTAL STATUS EXAMINATION General Appearance and Behavior: Age appropriate, good hygiene, wearing appropriate clothes, good, cooperative with questioning and polite Cooperation: Participating/engaged Psychomotor Behavior: unremarkable and within normal limits Mood: good Affect and affective range:congruent with mood Thought Process: Fluent/Logical Thought Content: Speech: Normal volume Intellectual Functioning: Average Suicidal Ideation: Denies SI Homicidal Ideation: Denies HI Impulse Control: Unimpaired Insight and Judgment: Good insight Memory: Normal Attention: Normal Orientation: Alert, oriented Assessment and Plan - Patient Problems (1) Schizophrenia, paranoid Current Visit: Yes Status: Acute (2) Psychotic disorder with delusions Current Visit: Yes Status: Acute Treatment Plan Invega IM this AM. Continue current medication regimen and nurse to observe for compliance. will continue to observe for mood stability. The patient's behavior, mood, sleep and appetite will be closely monitored. Patient will be enrolled in individual and group therapeutic sessions and encouraged to attend. Patient will be provided with a safe and structured environment. Patient's physical health needs will be addressed by the Hospitalist. Hospitalist Consulted Labs including CBC, CMP, Lipid profile and Hemoglobin A1C ordered Social Assessment will be completed and the Studio Couch Frame Builder will work with patient and family to ensure a suitable and safe disposition Medication adjustment will be made as clinically indicated Usual Wellness Gnosticist/Preservation: Restarted Home medications Geodon 10mg q4h prn agitation or refusal of oral antipsychotics The patient agreed on the treatment plan, understood the risk, benefit, alternative treatment, potential consequence of no treatment, and gave informed consent. - Certification Statement This is an acknowledgement statement that Siobhan Guido is a 64y/o female who requires inpatient psychiatric admission for treatment which could reasonably be expected to improve the patient's condition for Paranoid Schizophrenia. Estimated period of time patient will need to remain in the hospital: [2] Plan for post-hospital care: [ Outpatient] Assessment and Plan - Patient Problems (1) Schizophrenia, paranoid Current Visit: Yes Status: Acute (2) Psychotic disorder with delusions Current Visit: Yes Status: Acute Medications and Allergies Allergies Allergy/AdvReac Type Severity Reaction Status Date / Time No Known Allergies Allergy Verified 01/19/20 11:50 Home Medications Medication Instructions Recorded Confirmed Last Taken Type Amlodipine Besylate [Norvasc] 5 mg PO QHS 11/26/19 01/21/20 Unknown History Aspirin [Aspirin BABY CHEW TAB] 81 mg PO QHS 11/26/19 01/21/20 Unknown History Potassium Chloride [K-Dur] 8 meq PO QAM 11/26/19 01/21/20 Unknown History hydroCHLOROthiazide [HCTZ] 12.5 mg PO QDAY 11/26/19 01/20/20 Unknown History lisinopriL [Zestril TAB] 40 mg PO QDAY 11/26/19 01/20/[address] [Harshil Zapata] 500 mg PO BID #60 tablet 12/13/19 01/21/20 Unknown Rx FLUoxetine [PROzac] 40 mg PO QDAY #60 capsule 12/13/19 01/20/20 Unknown Rx risperiDONE [RisperDAL] 3 mg PO BID #120 tablet 12/13/19 01/20/20 Unknown Rx traZODone [Desyrel] 50 mg PO QHS #30 tablet 12/13/19 01/20/20 Unknown Rx Paliperidone Palmitate(Nf) [Invega 234 mg IM QMONTH 01/25/20 01/25/20 12/26/19 10:00 History Sustenna(Nf)] Active Meds: Active Medications Amlodipine Besylate (Amlodipine) 5 mg PO QHS [facility] Last Admin: 01/25/20 21:44 Dose: 5 mg Documented by: Aspirin (Baby Aspirin) 81 mg PO QHS [facility] Last Admin: 01/25/20 21:44 Dose: 81 mg Documented by: Divalproex Sodium (Harshil Zapata) 500 mg PO BID [facility] Last Admin: 01/25/20 21:45 Dose: 500 mg Documented by: Fluoxetine HCl (Prozac) 40 mg PO QDAY [facility] Last Admin: 01/25/20 09:10 Dose: 40 mg Documented by: Hydrochlorothiazide (Hctz) 12.5 mg PO QDAY [facility] Last Admin: 01/25/20 09:07 Dose: 12.5 mg Documented by: Lisinopril (Zestril) 40 mg PO QDAY [facility] Last Admin: 01/25/20 09:08 Dose: 40 mg Documented by: Potassium Chloride (Klor-Con 8) 8 meq PO QAM [facility] Last Admin: 01/25/20 09:09 Dose: 8 meq Documented by: Risperidone (Risperdal) 3 mg PO BID [facility] Last Admin: 01/25/20 21:44 Dose: 3 mg Documented by: Trazodone HCl (Desyrel) 50 mg PO QHS [facility] Last Admin: 01/25/20 21:44 Dose: 50 mg Documented by: Ziprasidone (Geodon) 10 mg IM Q4H PRN PRN Reason: Agitation Results - Results Labs/Vitals: Laboratory Last Values WBC 7.6 K/mm3 (4.5-11.0) 01/20/20 16:25 RBC 5.29 M/mm3 (3.65-5.03) H 01/20/20 16:25 Hgb 13.0 gm/dl (10.1-14.3) 01/20/20 16:25 Hct 40.8 % (30.3-42.9) 01/20/20 16:25 MCV 77 fl (79-97) L 01/20/20 16:25 MCH 25 pg (28-32) L 01/20/20 16:25 MCHC 32 % (30-34) 01/20/20 16:25 RDW 16.1 % (13.2-15.2) H 01/20/20 16:25 Plt Count 259 K/mm3 (140-440) 01/20/20 16:25 Lymph % (Auto) 28.6 % (13.4-35.0) 01/20/20 16:25 [place] % (Auto) 8.4 % (0.0-7.3) H 01/20/20 16:25 Eos % (Auto) 0.6 % (0.0-4.3) 01/20/20 16:25 Baso % (Auto) 0.7 % (0.0-1.8) 01/20/20 16:25 Lymph # 2.2 K/mm3 (1.2-5.4) 01/20/20 16:25 [place] # 0.6 K/mm3 (0.0-0.8) 01/20/20 16:25 Eos # 0.0 K/mm3 (0.0-0.4) 01/20/20 16:25 Baso # 0.1 K/mm3 (0.0-0.1) 01/20/20 16:25 Seg Neutrophils % 61.7 % (40.0-70.0) 01/20/20 16:25 Seg Neutrophils # 4.7 K/mm3 (1.8-7.7) 01/20/20 16:25 Sodium 139 mmol/L (137-145) 01/20/20 16:25 Potassium 3.7 mmol/L (3.6-5.0) 01/20/20 16:25 Chloride 102.3 mmol/L (98-107) 01/20/20 16:25 Carbon Dioxide 24 mmol/L (22-30) 01/20/20 16:25 Anion Gap 16 mmol/L 01/20/20 16:25 BUN 12 mg/dL (7-17) 01/20/20 16:25 Creatinine 1.0 mg/dL (0.7-1.2) 01/20/20 16:25 Estimated GFR > 60 ml/min 01/20/20 16:25 BUN/Creatinine Ratio 12 % 01/20/20 16:25 Glucose 97 mg/dL (65-100) 01/20/20 16:25 POC Glucose 116 (70-105) H 01/25/20 06:58 Hemoglobin A1c 6.2 % (4-6) H 01/20/20 16:25 Calcium 10.5 mg/dL (8.4-10.2) H 01/20/20 16:25 Total Bilirubin 0.40 mg/dL (0.1-1.2) 01/20/20 16:25 AST 15 units/L (5-40) 01/20/20 16:25 ALT 7 units/L (7-56) 01/20/20 16:25 Alkaline Phosphatase 63 units/L (35-129) 01/20/20 16:25 Total Protein 8.0 g/dL (6.3-8.2) 01/20/20 16:25 Albumin 4.1 g/dL (3.9-5) 01/20/20 16:25 Albumin/Globulin Ratio 1.1 % 01/20/20 16:25 Triglycerides 63 mg/dL (2-149) 01/20/20 16:25 Cholesterol 199 mg/dL (50-199) 01/20/20 16:25 LDL Cholesterol Direct 133 mg/dL (50-130) H 01/20/20 16:25 HDL Cholesterol 61 mg/dL (40-59) H 01/20/20 16:25 Cholesterol/HDL Ratio 3.26 % 01/20/20 16:25 TSH 1.680 mlU/mL (0.270-4.200) 01/20/20 16:25 Last Vital Signs Temp 98.5 F 01/25/20 22:00 Pulse 103 H 01/25/20 22:00 Resp 18 01/25/20 22:00 BP 127/59 01/25/20 22:00 Pulse Ox 99 01/25/20 22:00
[2020-01-26] MEDS: hydroCHLOROthiazide 12.5 MG CAP PO SCH (09:55)
[2020-01-26] MEDS: FLUoxetine 20 MG CAP PO SCH (09:55)
[2020-01-26] MEDS: DIVALPROEX DR 500 MG TAB PO SCH ×2 (09:55→21:05)
[2020-01-26] MEDS: LISINOPRIL 40 MG TAB PO SCH (09:55)
[2020-01-26] MEDS: POTASSIUM CHLORIDE ER 8 MEQ TAB PO SCH (09:55)
[2020-01-26] MEDS: risperiDONE 3 MG TAB PO SCH ×2 (09:55→21:06)
[2020-01-26] MEDS ORDERED: PALIPERIDONE PALMITATE 234 MG/1.5 ML SYRINGE IM SCH (10:00)
[2020-01-26] MEDS: traZODone 50 MG TAB PO SCH (21:05)
[2020-01-26] MEDS: amLODIPine 5 MG TAB PO SCH (21:06)
[2020-01-26] MEDS: ASPIRIN 81 MG TAB CHEW PO SCH (21:07)
--- NOTE | 2020-01-27 08:46 | Progress Note ---
Subjective Date of service: 01/27/20 Principal diagnosis: Paranoid Schizophrenia Subjective Comment: The patient's medical record was reviewed and the patient's progress was discussed with the nursing staff. The tech caring for the patient today says the patient has been "responding to internal stimuli very." During my interview with the patient today, she was sitting in the dayroom working a crossword puzzle. She never looks up during the interview. She is dressed appropriately. She is a/o x 3. She says she feels "fine" when asked. The patient also says she slept "good," but says she had "nightmares that someone was raping me." She denies SI/HI or hallucinations of any kind. The patient says, "I was only admitted because of tales my two oldest children were telling." Reason for continued inpatient treatment: The patient is delusional, and continues to respond to internal stimuli. REVIEW OF SYSTEMS Constitutional: Negative for weight loss ENT: Negative for stridor Respiratory: Negative for cough or hemoptysis All other systems reviewed and are negative MENTAL STATUS EXAMINATION General Appearance: Dressed appropriately Behavior: calm, cooperative Mood: "fine" Affect: Congruent with stated mood Speech: Normal tone and pace Thought Process: Responding to internal stimuli Thought Content: Suicidal Ideation: Denies Homicidal Ideation: Denies Hallucinations: Denies Delusions: Yes Insight and Judgment: Limited Memory/Cognition: Limited Assessment Paranoid Schizophrenia Treatment Plan Patient will be admitted for inpatient psychiatric evaluation, medication adjustment and close monitoring The patient's behavior, mood, sleep and appetite will be closely monitored. Patient will be enrolled in individual and group therapeutic sessions and encouraged to attend. Patient will be provided with a safe and structured environment. Patient's physical health needs will be addressed by the Hospitalist. Kyle roblero Consulted Labs including CBC, CMP, Lipid profile and Hemoglobin A1C ordered Social Assessment will be completed and the Sheet Metal Apprentice will work with patient and family to ensure a suitable and safe disposition Medication adjustment will be made as clinically indicated Usual Wellness Congregation/Preservation: Invega injection administered yesterday. The patient agreed on the treatment plan, understood the risk, benefit, alternative treatment, potential consequence of no treatment, and gave informed consent. Estimated period of time patient will need to remain in the hospital: [3] Plan for post-hospital care: [Outpatient] Medications and Allergies Allergies Allergy/AdvReac Type Severity Reaction Status Date / Time No Known Allergies Allergy Verified 01/19/20 11:50 Home Medications Medication Instructions Recorded Confirmed Last Taken Type Amlodipine Besylate [Norvasc] 5 mg PO QHS 11/26/19 01/21/20 Unknown History Aspirin [Aspirin BABY CHEW TAB] 81 mg PO QHS 11/26/19 01/21/20 Unknown History Potassium Chloride [K-Dur] 8 meq PO QAM 11/26/19 01/21/20 Unknown History hydroCHLOROthiazide [HCTZ] 12.5 mg PO QDAY 11/26/19 01/20/20 Unknown History lisinopriL [Zestril TAB] 40 mg PO QDAY 11/26/19 01/20/[address] [Harshil Zapata] 500 mg PO BID #60 tablet 12/13/19 01/21/20 Unknown Rx FLUoxetine [PROzac] 40 mg PO QDAY #60 capsule 12/13/19 01/20/20 Unknown Rx risperiDONE [RisperDAL] 3 mg PO BID #120 tablet 12/13/19 01/20/20 Unknown Rx traZODone [Desyrel] 50 mg PO QHS #30 tablet 12/13/19 01/20/20 Unknown Rx Paliperidone Palmitate(Nf) [Invega 234 mg IM QMONTH 01/25/20 01/25/20 12/26/19 10:00 History Sustenna(Nf)] Active Meds: Active Medications Amlodipine Besylate (Amlodipine) 5 mg PO QHS [facility] Last Admin: 01/26/20 21:06 Dose: 5 mg Documented by: Aspirin (Baby Aspirin) 81 mg PO QHS [facility] Last Admin: 01/26/20 21:07 Dose: 81 mg Documented by: Divalproex Sodium (Harshil Zapata) 500 mg PO BID [facility] Last Admin: 01/26/20 21:05 Dose: 500 mg Documented by: Fluoxetine HCl (Prozac) 40 mg PO QDAY [facility] Last Admin: 01/26/20 09:55 Dose: 40 mg Documented by: Hydrochlorothiazide (Hctz) 12.5 mg PO QDAY [facility] Last Admin: 01/26/20 09:55 Dose: 12.5 mg Documented by: Lisinopril (Zestril) 40 mg PO QDAY [facility] Last Admin: 01/26/20 09:55 Dose: 40 mg Documented by: Potassium Chloride (Klor-Con 8) 8 meq PO QAM [facility] Last Admin: 01/26/20 09:55 Dose: 8 meq Documented by: Risperidone (Risperdal) 3 mg PO BID [facility] Last Admin: 01/26/20 21:06 Dose: 3 mg Documented by: Trazodone HCl (Desyrel) 50 mg PO QHS [facility] Last Admin: 01/26/20 21:05 Dose: 50 mg Documented by: Ziprasidone (Geodon) 10 mg IM Q4H PRN PRN Reason: Agitation Results - Results Labs/Vitals: Laboratory Last Values WBC 7.6 K/mm3 (4.5-11.0) 01/20/20 16:25 RBC 5.29 M/mm3 (3.65-5.03) H 01/20/20 16:25 Hgb 13.0 gm/dl (10.1-14.3) 01/20/20 16:25 Hct 40.8 % (30.3-42.9) 01/20/20 16:25 MCV 77 fl (79-97) L 01/20/20 16:25 MCH 25 pg (28-32) L 01/20/20 16:25 MCHC 32 % (30-34) 01/20/20 16:25 RDW 16.1 % (13.2-15.2) H 01/20/20 16:25 Plt Count 259 K/mm3 (140-440) 01/20/20 16:25 Lymph % (Auto) 28.6 % (13.4-35.0) 01/20/20 16:25 [place] % (Auto) 8.4 % (0.0-7.3) H 01/20/20 16:25 Eos % (Auto) 0.6 % (0.0-4.3) 01/20/20 16:25 Baso % (Auto) 0.7 % (0.0-1.8) 01/20/20 16:25 Lymph # 2.2 K/mm3 (1.2-5.4) 01/20/20 16:25 [place] # 0.6 K/mm3 (0.0-0.8) 01/20/20 16:25 Eos # 0.0 K/mm3 (0.0-0.4) 01/20/20 16:25 Baso # 0.1 K/mm3 (0.0-0.1) 01/20/20 16:25 Seg Neutrophils % 61.7 % (40.0-70.0) 01/20/20 16:25 Seg Neutrophils # 4.7 K/mm3 (1.8-7.7) 01/20/20 16:25 Sodium 139 mmol/L (137-145) 01/20/20 16:25 Potassium 3.7 mmol/L (3.6-5.0) 01/20/20 16:25 Chloride 102.3 mmol/L (98-107) 01/20/20 16:25 Carbon Dioxide 24 mmol/L (22-30) 01/20/20 16:25 Anion Gap 16 mmol/L 01/20/20 16:25 BUN 12 mg/dL (7-17) 01/20/20 16:25 Creatinine 1.0 mg/dL (0.7-1.2) 01/20/20 16:25 Estimated GFR > 60 ml/min 01/20/20 16:25 BUN/Creatinine Ratio 12 % 01/20/20 16:25 Glucose 97 mg/dL (65-100) 01/20/20 16:25 POC Glucose 105 (70-105) 01/26/20 07:28 Hemoglobin A1c 6.2 % (4-6) H 01/20/20 16:25 Calcium 10.5 mg/dL (8.4-10.2) H 01/20/20 16:25 Total Bilirubin 0.40 mg/dL (0.1-1.2) 01/20/20 16:25 AST 15 units/L (5-40) 01/20/20 16:25 ALT 7 units/L (7-56) 01/20/20 16:25 Alkaline Phosphatase 63 units/L (35-129) 01/20/20 16:25 Total Protein 8.0 g/dL (6.3-8.2) 01/20/20 16:25 Albumin 4.1 g/dL (3.9-5) 01/20/20 16:25 Albumin/Globulin Ratio 1.1 % 01/20/20 16:25 Triglycerides 63 mg/dL (2-149) 01/20/20 16:25 Cholesterol 199 mg/dL (50-199) 01/20/20 16:25 LDL Cholesterol Direct 133 mg/dL (50-130) H 01/20/20 16:25 HDL Cholesterol 61 mg/dL (40-59) H 01/20/20 16:25 Cholesterol/HDL Ratio 3.26 % 01/20/20 16:25 TSH 1.680 mlU/mL (0.270-4.200) 01/20/20 16:25 Last Vital Signs Temp 98.4 F 01/26/20 08:14 Pulse 109 H 01/26/20 21:06 Resp 18 01/26/20 08:14 BP 151/72 01/26/20 21:06 Pulse Ox 98 01/26/20 08:14
[2020-01-27] MEDS: FLUoxetine 20 MG CAP PO SCH (09:05)
[2020-01-27] MEDS: hydroCHLOROthiazide 12.5 MG CAP PO SCH (09:05)
[2020-01-27] MEDS: LISINOPRIL 40 MG TAB PO SCH (09:05)
[2020-01-27] MEDS: risperiDONE 3 MG TAB PO SCH ×2 (09:05→21:36)
[2020-01-27] MEDS: POTASSIUM CHLORIDE ER 8 MEQ TAB PO SCH (09:05)
[2020-01-27] MEDS: DIVALPROEX DR 500 MG TAB PO SCH ×2 (09:05→21:37)
[2020-01-27] MEDS: traZODone 50 MG TAB PO SCH (21:36)
[2020-01-27] MEDS: ASPIRIN 81 MG TAB CHEW PO SCH (21:37)
[2020-01-27] MEDS: amLODIPine 5 MG TAB PO SCH (21:38)
--- NOTE | 2020-01-28 08:05 | Progress Note ---
Subjective Date of service: 01/28/20 Principal diagnosis: Paranoid Schizophrenia Subjective Comment: The patient's medical record was reviewed and the patient's progress was discussed with the nursing staff. During my interview with the patient today, she is standing in her room at the sink. She is dressed appropriately. She is a/o x 3. She says her "night went better. I didn't have any nightmares." The patient describes her mood as "good." She says her appetite is "very good." She denies hallucinations of any kind. Reason for continued inpatient treatment: The patient has improved significantly. Will continue to monitor her progress and prepare her for disch arge REVIEW OF SYSTEMS Constitutional: Negative for weight loss ENT: Negative for stridor Respiratory: Negative for cough or hemoptysis All other systems reviewed and are negative MENTAL STATUS EXAMINATION General Appearance: Dressed appropriately Behavior: calm, cooperative Mood: "fine" Affect: Congruent with stated mood Speech: Normal tone and pace Thought Process: Responding to internal stimuli Thought Content: Suicidal Ideation: Denies Homicidal Ideation: Denies Hallucinations: Denies Delusions: Yes Insight and Judgment: Limited Memory/Cognition: Limited Assessment Paranoid Schizophrenia Treatment Plan Patient will be admitted for inpatient psychiatric evaluation, medication adjustment and close monitoring The patient's behavior, mood, sleep and appetite will be closely monitored. Patient will be enrolled in individual and group therapeutic sessions and encouraged to attend. Patient will be provided with a safe and structured environment. Patient's physical health needs will be addressed by the Hospitalist. Hospitalist Consulted Labs including CBC, CMP, Lipid profile and Hemoglobin A1C ordered Social Assessment will be completed and the Coal Pulverizing Operator will work with patient and family to ensure a suitable and safe disposition Medication adjustment will be made as clinically indicated Usual Wellness Nondenominational/Preservation: No changes made today The patient agreed on the treatment plan, understood the risk, benefit, alternative treatment, potential consequence of no treatment, and gave informed consent. Estimated period of time patient will need to remain in the hospital: [2] Plan for post-hospital care: [Outpatient] Medications and Allergies Allergies Allergy/AdvReac Type Severity Reaction Status Date / Time No Known Allergies Allergy Verified 01/19/20 11:50 Home Medications Medication Instructions Recorded Confirmed Last Taken Type Amlodipine Besylate [Norvasc] 5 mg PO QHS 11/26/19 01/21/20 Unknown History Aspirin [Aspirin BABY CHEW TAB] 81 mg PO QHS 11/26/19 01/21/20 Unknown History Potassium Chloride [K-Dur] 8 meq PO QAM 11/26/19 01/21/20 Unknown History hydroCHLOROthiazide [HCTZ] 12.5 mg PO QDAY 11/26/19 01/20/20 Unknown History lisinopriL [Zestril TAB] 40 mg PO QDAY 11/26/19 01/20/[address] [Harshil Dr] 500 mg PO BID #60 tablet 12/13/19 01/21/20 Unknown Rx FLUoxetine [PROzac] 40 mg PO QDAY #60 capsule 12/13/19 01/20/20 Unknown Rx risperiDONE [RisperDAL] 3 mg PO BID #120 tablet 12/13/19 01/20/20 Unknown Rx traZODone [Desyrel] 50 mg PO QHS #30 tablet 12/13/19 01/20/20 Unknown Rx Paliperidone Palmitate(Nf) [Invega 234 mg IM QMONTH 01/25/20 01/25/20 12/26/19 10:00 History Sustenna(Nf)] Active Meds: Active Medications Amlodipine Besylate (Amlodipine) 5 mg PO QHS [facility] Last Admin: 01/27/20 21:38 Dose: 5 mg Documented by: Aspirin (Baby Aspirin) 81 mg PO QHS [facility] Last Admin: 01/27/20 21:37 Dose: 81 mg Documented by: Divalproex Sodium (Harshil Zapata) 500 mg PO BID [facility] Last Admin: 01/27/20 21:37 Dose: 500 mg Documented by: Fluoxetine HCl (Prozac) 40 mg PO QDAY [facility] Last Admin: 01/27/20 09:05 Dose: 40 mg Documented by: Hydrochlorothiazide (Hctz) 12.5 mg PO QDAY [facility] Last Admin: 01/27/20 09:05 Dose: 12.5 mg Documented by: Lisinopril (Zestril) 40 mg PO QDAY [facility] Last Admin: 01/27/20 09:05 Dose: 40 mg Documented by: Potassium Chloride (Klor-Con 8) 8 meq PO QAM [facility] Last Admin: 01/27/20 09:05 Dose: 8 meq Documented by: Risperidone (Risperdal) 3 mg PO BID [facility] Last Admin: 01/27/20 21:36 Dose: 3 mg Documented by: Trazodone HCl (Desyrel) 50 mg PO QHS [facility] Last Admin: 01/27/20 21:36 Dose: 50 mg Documented by: Ziprasidone (Geodon) 10 mg IM Q4H PRN PRN Reason: Agitation Results - Results Labs/Vitals: Laboratory Last Values WBC 7.6 K/mm3 (4.5-11.0) 01/20/20 16:25 RBC 5.29 M/mm3 (3.65-5.03) H 01/20/20 16:25 Hgb 13.0 gm/dl (10.1-14.3) 01/20/20 16:25 Hct 40.8 % (30.3-42.9) 01/20/20 16:25 MCV 77 fl (79-97) L 01/20/20 16:25 MCH 25 pg (28-32) L 01/20/20 16:25 MCHC 32 % (30-34) 01/20/20 16:25 RDW 16.1 % (13.2-15.2) H 01/20/20 16:25 Plt Count 259 K/mm3 (140-440) 01/20/20 16:25 Lymph % (Auto) 28.6 % (13.4-35.0) 01/20/20 16:25 [place] % (Auto) 8.4 % (0.0-7.3) H 01/20/20 16:25 Eos % (Auto) 0.6 % (0.0-4.3) 01/20/20 16:25 Baso % (Auto) 0.7 % (0.0-1.8) 01/20/20 16:25 Lymph # 2.2 K/mm3 (1.2-5.4) 01/20/20 16:25 [place] # 0.6 K/mm3 (0.0-0.8) 01/20/20 16:25 Eos # 0.0 K/mm3 (0.0-0.4) 01/20/20 16:25 Baso # 0.1 K/mm3 (0.0-0.1) 01/20/20 16:25 Seg Neutrophils % 61.7 % (40.0-70.0) 01/20/20 16:25 Seg Neutrophils # 4.7 K/mm3 (1.8-7.7) 01/20/20 16:25 Sodium 139 mmol/L (137-145) 01/20/20 16:25 Potassium 3.7 mmol/L (3.6-5.0) 01/20/20 16:25 Chloride 102.3 mmol/L (98-107) 01/20/20 16:25 Carbon Dioxide 24 mmol/L (22-30) 01/20/20 16:25 Anion Gap 16 mmol/L 01/20/20 16:25 BUN 12 mg/dL (7-17) 01/20/20 16:25 Creatinine 1.0 mg/dL (0.7-1.2) 01/20/20 16:25 Estimated GFR > 60 ml/min 01/20/20 16:25 BUN/Creatinine Ratio 12 % 01/20/20 16:25 Glucose 97 mg/dL (65-100) 01/20/20 16:25 POC Glucose 105 (70-105) 01/26/20 07:28 Hemoglobin A1c 6.2 % (4-6) H 01/20/20 16:25 Calcium 10.5 mg/dL (8.4-10.2) H 01/20/20 16:25 Total Bilirubin 0.40 mg/dL (0.1-1.2) 01/20/20 16:25 AST 15 units/L (5-40) 01/20/20 16:25 ALT 7 units/L (7-56) 01/20/20 16:25 Alkaline Phosphatase 63 units/L (35-129) 01/20/20 16:25 Total Protein 8.0 g/dL (6.3-8.2) 01/20/20 16:25 Albumin 4.1 g/dL (3.9-5) 01/20/20 16:25 Albumin/Globulin Ratio 1.1 % 01/20/20 16:25 Triglycerides 63 mg/dL (2-149) 01/20/20 16:25 Cholesterol 199 mg/dL (50-199) 01/20/20 16:25 LDL Cholesterol Direct 133 mg/dL (50-130) H 01/20/20 16:25 HDL Cholesterol 61 mg/dL (40-59) H 01/20/20 16:25 Cholesterol/HDL Ratio 3.26 % 01/20/20 16:25 TSH 1.680 mlU/mL (0.270-4.200) 01/20/20 16:25 Last Vital Signs Temp 99.0 F 01/27/20 20:30 Pulse 109 H 01/27/20 21:38 Resp 18 01/27/20 20:30 BP 127/53 01/27/20 21:38 Pulse Ox 100 01/27/20 20:30
[2020-01-28] MEDS: DIVALPROEX DR 500 MG TAB PO SCH ×2 (10:02→21:18)
[2020-01-28] MEDS: risperiDONE 3 MG TAB PO SCH ×2 (10:02→21:18)
[2020-01-28] MEDS: hydroCHLOROthiazide 12.5 MG CAP PO SCH (10:02)
[2020-01-28] MEDS: FLUoxetine 20 MG CAP PO SCH (10:02)
[2020-01-28] MEDS: POTASSIUM CHLORIDE ER 8 MEQ TAB PO SCH (10:02)
[2020-01-28] MEDS: LISINOPRIL 40 MG TAB PO SCH (10:04)
[2020-01-28] MEDS: amLODIPine 5 MG TAB PO SCH (21:17)
[2020-01-28] MEDS: ASPIRIN 81 MG TAB CHEW PO SCH (21:17)
[2020-01-28] MEDS: traZODone 50 MG TAB PO SCH (21:18)
--- NOTE | 2020-01-29 07:38 | Progress Note ---
Subjective Date of service: 01/29/20 Principal diagnosis: Paranoid Schizophrenia Subjective Comment: The patient's medical record was reviewed and the patient's progress was discussed with the nursing staff. The nurse note states the patient is still delusional, she believes she is 4 and half months . During my interview with the patient today, she is sitting in the dayroom coloring. She is a/o x 3. She makes fair eye contact. She says she "feels better" when asked about her mood. The patient denies SI/HI or hallucinations of any kind. She then asks me, "did you know I was nine months by my who ?" I attempted to redirect the patient and tell her she was not , the patient states, "yes I am. I have a set of twins that will be two in February." Reason for continued inpatient treatment: The patient has improved significantly, but but is delusional at times. REVIEW OF SYSTEMS Constitutional: Negative for weight loss ENT: Negative for stridor Respiratory: Negative for cough or hemoptysis All other systems reviewed and are negative MENTAL STATUS EXAMINATION General Appearance: Dressed appropriately Behavior: calm, cooperative Mood: "feel better" Affect: Congruent with stated mood Speech: Normal tone and pace Thought Process: goal directed Thought Content: Suicidal Ideation: Denies Homicidal Ideation: Denies Hallucinations: Denies Delusions: Yes Insight and Judgment: Limited Memory/Cognition: Limited Assessment Paranoid Schizophrenia Treatment Plan Patient will be admitted for inpatient psychiatric evaluation, medication adjustment and close monitoring The patient's behavior, mood, sleep and appetite will be closely monitored. Patient will be enrolled in individual and group therapeutic sessions and encouraged to attend. Patient will be provided with a safe and structured environment. Patient's physical health needs will be addressed by the Hospitalist. Hospitalist Consulted Labs including CBC, CMP, Lipid profile and Hemoglobin A1C ordered Social Assessment will be completed and the Financial Writer will work with patient and family to ensure a suitable and safe disposition Medication adjustment will be made as clinically indicated Usual Wellness Samaritan/Preservation: No changes made today The patient agreed on the treatment plan, understood the risk, benefit, alternative treatment, potential consequence of no treatment, and gave informed consent. Estimated period of time patient will need to remain in the hospital: [1] Plan for post-hospital care: [Outpatient] Medications and Allergies Allergies Allergy/AdvReac Type Severity Reaction Status Date / Time No Known Allergies Allergy Verified 01/19/20 11:50 Home Medications Medication Instructions Recorded Confirmed Last Taken Type Amlodipine Besylate [Norvasc] 5 mg PO QHS 11/26/19 01/21/20 Unknown History Aspirin [Aspirin BABY CHEW TAB] 81 mg PO QHS 11/26/19 01/21/20 Unknown History Potassium Chloride [K-Dur] 8 meq PO QAM 11/26/19 01/21/20 Unknown History hydroCHLOROthiazide [HCTZ] 12.5 mg PO QDAY 11/26/19 01/20/20 Unknown History lisinopriL [Zestril TAB] 40 mg PO QDAY 11/26/19 01/20/[address] [Harshil Zapata] 500 mg PO BID #60 tablet 12/13/19 01/21/20 Unknown Rx FLUoxetine [PROzac] 40 mg PO QDAY #60 capsule 12/13/19 01/20/20 Unknown Rx risperiDONE [RisperDAL] 3 mg PO BID #120 tablet 12/13/19 01/20/20 Unknown Rx traZODone [Desyrel] 50 mg PO QHS #30 tablet 12/13/19 01/20/20 Unknown Rx Paliperidone Palmitate(Nf) [Invega 234 mg IM QMONTH 01/25/20 01/25/20 12/26/19 10:00 History Sustenna(Nf)] Active Meds: Active Medications Amlodipine Besylate (Amlodipine) 5 mg PO QHS [facility] Last Admin: 01/28/20 21:17 Dose: 5 mg Documented by: Aspirin (Baby Aspirin) 81 mg PO QHS [facility] Last Admin: 01/28/20 21:17 Dose: 81 mg Documented by: Divalproex Sodium (Harshil Zapata) 500 mg PO BID [facility] Last Admin: 01/28/20 21:18 Dose: 500 mg Documented by: Fluoxetine HCl (Prozac) 40 mg PO QDAY [facility] Last Admin: 01/28/20 10:02 Dose: 40 mg Documented by: Hydrochlorothiazide (Hctz) 12.5 mg PO QDAY [facility] Last Admin: 01/28/20 10:02 Dose: 12.5 mg Documented by: Lisinopril (Zestril) 40 mg PO QDAY [facility] Last Admin: 01/28/20 10:04 Dose: 40 mg Documented by: Potassium Chloride (Klor-Con 8) 8 meq PO QAM [facility] Last Admin: 01/28/20 10:02 Dose: 8 meq Documented by: Risperidone (Risperdal) 3 mg PO BID [facility] Last Admin: 01/28/20 21:18 Dose: 3 mg Documented by: Trazodone HCl (Desyrel) 50 mg PO QHS [facility] Last Admin: 01/28/20 21:18 Dose: 50 mg Documented by: Ziprasidone (Geodon) 10 mg IM Q4H PRN PRN Reason: Agitation Results - Results Labs/Vitals: Laboratory Last Values WBC 7.6 K/mm3 (4.5-11.0) 01/20/20 16:25 RBC 5.29 M/mm3 (3.65-5.03) H 01/20/20 16:25 Hgb 13.0 gm/dl (10.1-14.3) 01/20/20 16:25 Hct 40.8 % (30.3-42.9) 01/20/20 16:25 MCV 77 fl (79-97) L 01/20/20 16:25 MCH 25 pg (28-32) L 01/20/20 16:25 MCHC 32 % (30-34) 01/20/20 16:25 RDW 16.1 % (13.2-15.2) H 01/20/20 16:25 Plt Count 259 K/mm3 (140-440) 01/20/20 16:25 Lymph % (Auto) 28.6 % (13.4-35.0) 01/20/20 16:25 [place] % (Auto) 8.4 % (0.0-7.3) H 01/20/20 16:25 Eos % (Auto) 0.6 % (0.0-4.3) 01/20/20 16:25 Baso % (Auto) 0.7 % (0.0-1.8) 01/20/20 16:25 Lymph # 2.2 K/mm3 (1.2-5.4) 01/20/20 16:25 [place] # 0.6 K/mm3 (0.0-0.8) 01/20/20 16:25 Eos # 0.0 K/mm3 (0.0-0.4) 01/20/20 16:25 Baso # 0.1 K/mm3 (0.0-0.1) 01/20/20 16:25 Seg Neutrophils % 61.7 % (40.0-70.0) 01/20/20 16:25 Seg Neutrophils # 4.7 K/mm3 (1.8-7.7) 01/20/20 16:25 Sodium 139 mmol/L (137-145) 01/20/20 16:25 Potassium 3.7 mmol/L (3.6-5.0) 01/20/20 16:25 Chloride 102.3 mmol/L (98-107) 01/20/20 16:25 Carbon Dioxide 24 mmol/L (22-30) 01/20/20 16:25 Anion Gap 16 mmol/L 01/20/20 16:25 BUN 12 mg/dL (7-17) 01/20/20 16:25 Creatinine 1.0 mg/dL (0.7-1.2) 01/20/20 16:25 Estimated GFR > 60 ml/min 01/20/20 16:25 BUN/Creatinine Ratio 12 % 01/20/20 16:25 Glucose 97 mg/dL (65-100) 01/20/20 16:25 POC Glucose 126 (70-105) H 01/29/20 03:04 Hemoglobin A1c 6.2 % (4-6) H 01/20/20 16:25 Calcium 10.5 mg/dL (8.4-10.2) H 01/20/20 16:25 Total Bilirubin 0.40 mg/dL (0.1-1.2) 01/20/20 16:25 AST 15 units/L (5-40) 01/20/20 16:25 ALT 7 units/L (7-56) 01/20/20 16:25 Alkaline Phosphatase 63 units/L (35-129) 01/20/20 16:25 Total Protein 8.0 g/dL (6.3-8.2) 01/20/20 16:25 Albumin 4.1 g/dL (3.9-5) 01/20/20 16:25 Albumin/Globulin Ratio 1.1 % 01/20/20 16:25 Triglycerides 63 mg/dL (2-149) 01/20/20 16:25 Cholesterol 199 mg/dL (50-199) 01/20/20 16:25 LDL Cholesterol Direct 133 mg/dL (50-130) H 01/20/20 16:25 HDL Cholesterol 61 mg/dL (40-59) H 01/20/20 16:25 Cholesterol/HDL Ratio 3.26 % 01/20/20 16:25 TSH 1.680 mlU/mL (0.270-4.200) 01/20/20 16:25 Last Vital Signs Temp 98.6 F 01/28/20 20:50 Pulse 106 H 01/28/20 21:17 Resp 16 01/28/20 20:50 BP 128/60 01/28/20 21:17 Pulse Ox 97 01/28/20 20:50
[2020-01-29] MEDS: LISINOPRIL 40 MG TAB PO SCH (10:24)
[2020-01-29] MEDS: FLUoxetine 20 MG CAP PO SCH (10:24)
[2020-01-29] MEDS: risperiDONE 3 MG TAB PO SCH ×2 (10:24→21:22)
[2020-01-29] MEDS: hydroCHLOROthiazide 12.5 MG CAP PO SCH (10:24)
[2020-01-29] MEDS: POTASSIUM CHLORIDE ER 8 MEQ TAB PO SCH (10:32)
[2020-01-29] MEDS: DIVALPROEX DR 500 MG TAB PO SCH ×2 (11:35→21:22)
[2020-01-29] MEDS: amLODIPine 5 MG TAB PO SCH (21:22)
[2020-01-29] MEDS: ASPIRIN 81 MG TAB CHEW PO SCH (21:22)
[2020-01-29] MEDS: traZODone 50 MG TAB PO SCH (21:22)
--- NOTE | 2020-01-30 08:18 | Discharge Summary ---
Providers - Providers Date of Admission: 01/19/20 18:45 Date of discharge: 01/30/20 Attending physician: LORIE LIU MD 01/19/20 18:45 Consult to Physician [CONS] Routine Comment: Consulting Provider: BENNETT JACOBSEN Physician Instructions: Reason For Exam: manage medical conditions Primary care physician: TRAIN ATTENDANT Hospitalization Condition: Stable Hospital course: The patient was provided inpatient psychiatric treatment with safe and supportive care, medication adjustment, adverse effect monitoring, medical evaluations, medical treatments, assessment and psycho-education. The patient's mood, cognition, behavior, moral support are improved and stabilized. St the time of discharge, the patient had no endangering behavior and no debilitating adverse effects. The patient agreed on potential consequences of no treatment and gave informed consent. Disposition: TO HOME OR SELFCARE Time spent for discharge: 35 Allergies/Adverse Reactions: Allergies No Known Allergies Allergy (Verified 01/19/20 11:50) Vital Signs: Last Vital Signs Temp 98.8 F 01/30/20 07:37 Pulse 95 H 01/30/20 07:37 Resp 18 01/30/20 07:37 BP 126/65 01/30/20 07:37 Pulse Ox 97 01/30/20 07:37 Last Lab: Laboratory Last Values WBC 7.6 K/mm3 (4.5-11.0) 01/20/20 16:25 RBC 5.29 M/mm3 (3.65-5.03) H 01/20/20 16:25 Hgb 13.0 gm/dl (10.1-14.3) 01/20/20 16:25 Hct 40.8 % (30.3-42.9) 01/20/20 16:25 MCV 77 fl (79-97) L 01/20/20 16:25 MCH 25 pg (28-32) L 01/20/20 16:25 MCHC 32 % (30-34) 01/20/20 16:25 RDW 16.1 % (13.2-15.2) H 01/20/20 16:25 Plt Count 259 K/mm3 (140-440) 01/20/20 16:25 Lymph % (Auto) 28.6 % (13.4-35.0) 01/20/20 16:25 [place] % (Auto) 8.4 % (0.0-7.3) H 01/20/20 16:25 Eos % (Auto) 0.6 % (0.0-4.3) 01/20/20 16:25 Baso % (Auto) 0.7 % (0.0-1.8) 01/20/20 16:25 Lymph # 2.2 K/mm3 (1.2-5.4) 01/20/20 16:25 [place] # 0.6 K/mm3 (0.0-0.8) 01/20/20 16:25 Eos # 0.0 K/mm3 (0.0-0.4) 01/20/20 16:25 Baso # 0.1 K/mm3 (0.0-0.1) 01/20/20 16:25 Seg Neutrophils % 61.7 % (40.0-70.0) 01/20/20 16:25 Seg Neutrophils # 4.7 K/mm3 (1.8-7.7) 01/20/20 16:25 Sodium 139 mmol/L (137-145) 01/20/20 16:25 Potassium 3.7 mmol/L (3.6-5.0) 01/20/20 16:25 Chloride 102.3 mmol/L (98-107) 01/20/20 16:25 Carbon Dioxide 24 mmol/L (22-30) 01/20/20 16:25 Anion Gap 16 mmol/L 01/20/20 16:25 BUN 12 mg/dL (7-17) 01/20/20 16:25 Creatinine 1.0 mg/dL (0.7-1.2) 01/20/20 16:25 Estimated GFR > 60 ml/min 01/20/20 16:25 BUN/Creatinine Ratio 12 % 01/20/20 16:25 Glucose 97 mg/dL (65-100) 01/20/20 16:25 POC Glucose 126 (70-105) H 01/29/20 03:04 Hemoglobin A1c 6.2 % (4-6) H 01/20/20 16:25 Calcium 10.5 mg/dL (8.4-10.2) H 01/20/20 16:25 Total Bilirubin 0.40 mg/dL (0.1-1.2) 01/20/20 16:25 AST 15 units/L (5-40) 01/20/20 16:25 ALT 7 units/L (7-56) 01/20/20 16:25 Alkaline Phosphatase 63 units/L (35-129) 01/20/20 16:25 Total Protein 8.0 g/dL (6.3-8.2) 01/20/20 16:25 Albumin 4.1 g/dL (3.9-5) 01/20/20 16:25 Albumin/Globulin Ratio 1.1 % 01/20/20 16:25 Triglycerides 63 mg/dL (2-149) 01/20/20 16:25 Cholesterol 199 mg/dL (50-199) 01/20/20 16:25 LDL Cholesterol Direct 133 mg/dL (50-130) H 01/20/20 16:25 HDL Cholesterol 61 mg/dL (40-59) H 01/20/20 16:25 Cholesterol/HDL Ratio 3.26 % 01/20/20 16:25 TSH 1.680 mlU/mL (0.270-4.200) 01/20/20 16:25 Core Measure Documentation - Palliative Care Palliative Care/ Comfort Measures: Not Applicable - Core Measures Any of the following diagnoses?: none Exam - Constitutional Vitals: Temp Pulse Resp BP Pulse Ox 98.8 F 95 H 18 126/65 97 01/30/20 07:37 01/30/20 07:37 01/30/20 07:37 01/30/20 07:37 01/30/20 07:37 General appearance: Present: no acute distress, well-nourished - EENT Eyes: Present: PERRL, EOM intact ENT: hearing intact, clear oral mucosa - Neck Neck: Present: supple, normal ROM - Respiratory Respiratory effort: normal Plan Activity: advance as tolerated Weight Bearing Status: Weight Bear as Tolerated Care Plan Goals: maintain good and stable mental health Plan of Treatment: The patient should be compliant with medications, not to use drugs, and not to drink alcohol. The patient understands that if suicidal ideas, homicidal ideas or any endangering feeling arise, the patient should seek assistance including, but not limited to crisis hotline, and emergency room. Follow up with: PRIMARY CARE, [Primary Care Provider] - 7 Days Prescriptions: traZODone [Desyrel] 50 mg PO QHS #[address] [Depakote Dr] 500 mg PO BID #60 tablet FLUoxetine [PROzac] 40 mg PO QDAY #60 capsule risperiDONE [RisperDAL] 3 mg PO BID #60 tablet
--- NOTE | 2020-01-30 08:55 | Progress Note ---
Subjective Date of service: 01/30/20 Principal diagnosis: Paranoid Schizophrenia Subjective Comment: The patient's medical record was reviewed and the patient's progress was discussed with the nursing staff. The nurse caring for the patient today states the patient has been delusional. During my interview with the patient today, she is sitting in the dayroom. She is a/o x 3. She makes fair eye contact. She says she "feels fine" when asked about her mood. The patient denies SI/HI or hallucinations of any kind. 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 It makes me sad." Reason for continued inpatient treatment: The patient appeared down, and has episodes of delusions. The patient is unable to care for herself. REVIEW OF SYSTEMS Constitutional: Negative for weight loss ENT: Negative for stridor Respiratory: Negative for cough or hemoptysis All other systems reviewed and are negative MENTAL STATUS EXAMINATION General Appearance: Dressed appropriately Behavior: calm, cooperative Mood: "feel better" Affect: Congruent with stated mood Speech: Normal tone and pace Thought Process: goal directed Thought Content: Suicidal Ideation: Denies Homicidal Ideation: Denies Hallucinations: Denies Delusions: Yes Insight and Judgment: Limited Memory/Cognition: Limited Assessment Paranoid Schizophrenia Treatment Plan Patient will be admitted for inpatient psychiatric evaluation, medication adjustment and close monitoring The patient's behavior, mood, sleep and appetite will be closely monitored. Patient will be enrolled in individual and group therapeutic sessions and encouraged to attend. Patient will be provided with a safe and structured environment. Patient's physical health needs will be addressed by the Hospitalist. Hospitalist Consulted Labs including CBC, CMP, Lipid profile and Hemoglobin A1C ordered Social Assessment will be completed and the Compressor Station Engineer will work with patient and family to ensure a suitable and safe disposition Medication adjustment will be made as clinically indicated Usual Wellness Gnosticist/Preservation: Increased Prozac 60mg po daily to decrease underlying depression The patient agreed on the treatment plan, understood the risk, benefit, al ternative treatment, potential consequence of no treatment, and gave informed consent. Estimated period of time patient will need to remain in the hospital: [3] Plan for post-hospital care: [Outpatient] Medications and Allergies Allergies Allergy/AdvReac Type Severity Reaction Status Date / Time No Known Allergies Allergy Verified 01/19/20 11:50 Home Medications Medication Instructions Recorded Confirmed Last Taken Type Amlodipine Besylate [Norvasc] 5 mg PO QHS 11/26/19 01/21/20 Unknown History Aspirin [Aspirin BABY CHEW TAB] 81 mg PO QHS 11/26/19 01/21/20 Unknown History Potassium Chloride [K-Dur] 8 meq PO QAM 11/26/19 01/21/20 Unknown History hydroCHLOROthiazide [HCTZ] 12.5 mg PO QDAY 11/26/19 01/20/20 Unknown History lisinopriL [Zestril TAB] 40 mg PO QDAY 11/26/19 01/20/20 Unknown History FLUoxetine [PROzac] 40 mg PO QDAY #60 capsule 12/13/19 01/20/20 Unknown Rx Paliperidone Palmitate(Nf) [Invega 234 mg IM QMONTH 01/25/20 01/25/20 12/26/19 10:00 History Sustenna(Nf)] Divalproex Dr [Harshil Zapata] 500 mg PO BID #60 tablet 01/30/20 Unknown Rx FLUoxetine [PROzac] 40 mg PO QDAY #60 capsule 01/30/20 Unknown Rx risperiDONE [RisperDAL] 3 mg PO BID #60 tablet 01/30/20 Unknown Rx traZODone [Desyrel] 50 mg PO QHS #30 tablet 01/30/20 Unknown Rx Active Meds: Active Medications Amlodipine Besylate (Amlodipine) 5 mg PO QHS [facility] Last Admin: 01/29/20 21:22 Dose: 5 mg Documented by: Aspirin (Baby Aspirin) 81 mg PO QHS [facility] Last Admin: 01/29/20 21:22 Dose: 81 mg Documented by: Divalproex Sodium (Harshil Zapata) 500 mg PO BID [facility] Last Admin: 01/29/20 21:22 Dose: 500 mg Documented by: Fluoxetine HCl (Prozac) 40 mg PO QDAY [facility] Last Admin: 01/29/20 10:24 Dose: 40 mg Documented by: Hydrochlorothiazide (Hctz) 12.5 mg PO QDAY [facility] Last Admin: 01/29/20 10:24 Dose: 12.5 mg Documented by: Lisinopril (Zestril) 40 mg PO QDAY [facility] Last Admin: 01/29/20 10:24 Dose: 40 mg Documented by: Potassium Chloride (Klor-Con 8) 8 meq PO QAM [facility] Last Admin: 01/29/20 10:32 Dose: Not Given Documented by: Risperidone (Risperdal) 3 mg PO BID [facility] Last Admin: 01/29/20 21:22 Dose: 3 mg Documented by: Trazodone HCl (Desyrel) 50 mg PO QHS [facility] Last Admin: 01/29/20 21:22 Dose: 50 mg Documented by: Ziprasidone (Geodon) 10 mg IM Q4H PRN PRN Reason: Agitation Results - Results Labs/Vitals: Laboratory Last Values WBC 7.6 K/mm3 (4.5-11.0) 01/20/20 16:25 RBC 5.29 M/mm3 (3.65-5.03) H 01/20/20 16:25 Hgb 13.0 gm/dl (10.1-14.3) 01/20/20 16:25 Hct 40.8 % (30.3-42.9) 01/20/20 16:25 MCV 77 fl (79-97) L 01/20/20 16:25 MCH 25 pg (28-32) L 01/20/20 16:25 MCHC 32 % (30-34) 01/20/20 16:25 RDW 16.1 % (13.2-15.2) H 01/20/20 16:25 Plt Count 259 K/mm3 (140-440) 01/20/20 16:25 Lymph % (Auto) 28.6 % (13.4-35.0) 01/20/20 16:25 [place] % (Auto) 8.4 % (0.0-7.3) H 01/20/20 16:25 Eos % (Auto) 0.6 % (0.0-4.3) 01/20/20 16:25 Baso % (Auto) 0.7 % (0.0-1.8) 01/20/20 16:25 Lymph # 2.2 K/mm3 (1.2-5.4) 01/20/20 16:25 [place] # 0.6 K/mm3 (0.0-0.8) 01/20/20 16:25 Eos # 0.0 K/mm3 (0.0-0.4) 01/20/20 16:25 Baso # 0.1 K/mm3 (0.0-0.1) 01/20/20 16:25 Seg Neutrophils % 61.7 % (40.0-70.0) 01/20/20 16:25 Seg Neutrophils # 4.7 K/mm3 (1.8-7.7) 01/20/20 16:25 Sodium 139 mmol/L (137-145) 01/20/20 16:25 Potassium 3.7 mmol/L (3.6-5.0) 01/20/20 16:25 Chloride 102.3 mmol/L (98-107) 01/20/20 16:25 Carbon Dioxide 24 mmol/L (22-30) 01/20/20 16:25 Anion Gap 16 mmol/L 01/20/20 16:25 BUN 12 mg/dL (7-17) 01/20/20 16:25 Creatinine 1.0 mg/dL (0.7-1.2) 01/20/20 16:25 Estimated GFR > 60 ml/min 01/20/20 16:25 BUN/Creatinine Ratio 12 % 01/20/20 16:25 Glucose 97 mg/dL (65-100) 01/20/20 16:25 POC Glucose 126 (70-105) H 01/29/20 03:04 Hemoglobin A1c 6.2 % (4-6) H 01/20/20 16:25 Calcium 10.5 mg/dL (8.4-10.2) H 01/20/20 16:25 Total Bilirubin 0.40 mg/dL (0.1-1.2) 01/20/20 16:25 AST 15 units/L (5-40) 01/20/20 16:25 ALT 7 units/L (7-56) 01/20/20 16:25 Alkaline Phosphatase 63 units/L (35-129) 01/20/20 16:25 Total Protein 8.0 g/dL (6.3-8.2) 01/20/20 16:25 Albumin 4.1 g/dL (3.9-5) 01/20/20 16:25 Albumin/Globulin Ratio 1.1 % 01/20/20 16:25 Triglycerides 63 mg/dL (2-149) 01/20/20 16:25 Cholesterol 199 mg/dL (50-199) 01/20/20 16:25 LDL Cholesterol Direct 133 mg/dL (50-130) H 01/20/20 16:25 HDL Cholesterol 61 mg/dL (40-59) H 01/20/20 16:25 Cholesterol/HDL Ratio 3.26 % 01/20/20 16:25 TSH 1.680 mlU/mL (0.270-4.200) 01/20/20 16:25 Last Vital Signs Temp 98.8 F 01/30/20 07:37 Pulse 95 H 01/30/20 07:37 Resp 18 01/30/20 07:37 BP 126/65 01/30/20 07:37 Pulse Ox 97 01/30/20 07:37
[2020-01-30] MEDS: DIVALPROEX DR 500 MG TAB PO SCH ×2 (10:24→21:50)
[2020-01-30] MEDS: hydroCHLOROthiazide 12.5 MG CAP PO SCH (10:24)
[2020-01-30] MEDS: POTASSIUM CHLORIDE ER 8 MEQ TAB PO SCH (10:24)
[2020-01-30] MEDS: LISINOPRIL 40 MG TAB PO SCH (10:25)
[2020-01-30] MEDS: risperiDONE 3 MG TAB PO SCH ×2 (10:25→22:57)
[2020-01-30] MEDS: FLUoxetine 20 MG CAP PO SCH (10:26)
[2020-01-30] MEDS: traZODone 50 MG TAB PO SCH (21:48)
[2020-01-30] MEDS: amLODIPine 5 MG TAB PO SCH (21:48)
[2020-01-30] MEDS: ASPIRIN 81 MG TAB CHEW PO SCH (22:56)
--- NOTE | 2020-01-31 08:28 | Progress Note ---
Subjective Date of service: 01/31/20 Principal diagnosis: Paranoid Schizophrenia Subjective Comment: The patient's medical record was reviewed and the patient's progress was discussed with the nursing staff. The nurse note states the patient spent most the day sitting in the dayroom doing art work and writing. She kept to herself. The patient states, "I think I am ." During my interview with the patient today, she is sitting in the dayroom. She is a/o x 3. She makes fair eye contact. The patient states "I feel tired." She then says, "but I slept good." She describes her mood as "good." She says, "I've finished the red requirements that I needed to do to go home. I've colored three pages and finished one puzzle." She then shows me each page one by one. She denies SI/HI or hallucinations of any kind. Reason for continued inpatient treatment: The patient is delusional and unable to care for herself. REVIEW OF SYSTEMS Constitutional: Negative for weight loss ENT: Negative for stridor Respiratory: Negative for cough or hemoptysis All other systems reviewed and are negative MENTAL STATUS EXAMINATION General Appearance: Dressed appropriately Behavior: calm, cooperative Mood: "good" Affect: Incongruent, appears down Speech: Normal tone and pace Thought Process: goal directed Thought Content: Suicidal Ideation: Denies Homicidal Ideation: Denies Hallucinations: Denies Delusions: Yes Insight and Judgment: Limited Memory/Cognition: Limited Assessment Paranoid Schizophrenia Treatment Plan Patient will be admitted for inpatient psychiatric evaluation, medication adjustment and close monitoring The patient's behavior, mood, sleep and appetite will be closely monitored. Patient will be enrolled in individual and group therapeutic sessions and encouraged to attend. Patient will be provided with a safe and structured environment. Patient's physical health needs will be addressed by the Hospitalist. Hospitalist Consulted Labs including CBC, CMP, Lipid profile and Hemoglobin A1C ordered Social Assessment will be completed and the Automotive Window Tinter will work with patient and family to ensure a suitable and safe disposition Medication adjustment will be made as clinically indicated Usual Wellness Sikh/Preservation: No changes made today Increased Prozac 60mg po daily to decrease underlying depression Yesterday The patient agreed on the treatment plan, understood the risk, benefit, alternative treatment, potential consequence of no treatment, and gave informed consent. Estimated period of time patient will need to remain in the hospital: [2] Plan for post-hospital care: [Outpatient] Medications and Allergies Allergies Allergy/AdvReac Type Severity Reaction Status Date / Time No Known Allergies Allergy Verified 01/19/20 11:50 Home Medications Medication Instructions Recorded Confirmed Last Taken Type Amlodipine Besylate [Norvasc] 5 mg PO QHS 11/26/19 01/21/20 Unknown History Aspirin [Aspirin BABY CHEW TAB] 81 mg PO QHS 11/26/19 01/21/20 Unknown History Potassium Chloride [K-Dur] 8 meq PO QAM 11/26/19 01/21/20 Unknown History hydroCHLOROthiazide [HCTZ] 12.5 mg PO QDAY 11/26/19 01/20/20 Unknown History lisinopriL [Zestril TAB] 40 mg PO QDAY 11/26/19 01/20/20 Unknown History FLUoxetine [PROzac] 40 mg PO QDAY #60 capsule 12/13/19 01/20/20 Unknown Rx Paliperidone Palmitate(Nf) [Invega 234 mg IM QMONTH 01/25/20 01/25/20 12/26/19 10:00 History Sustenna(Nf)] Divalproex Dr [Harshil Zapata] 500 mg PO BID #60 tablet 01/30/20 Unknown Rx FLUoxetine [PROzac] 40 mg PO QDAY #60 capsule 01/30/20 Unknown Rx risperiDONE [RisperDAL] 3 mg PO BID #60 tablet 01/30/20 Unknown Rx traZODone [Desyrel] 50 mg PO QHS #30 tablet 01/30/20 Unknown Rx Active Meds: Active Medications Amlodipine Besylate (Amlodipine) 5 mg PO QHS [facility] Last Admin: 01/30/20 21:48 Dose: 5 mg Documented by: Aspirin (Baby Aspirin) 81 mg PO QHS [facility] Last Admin: 01/30/20 22:56 Dose: 81 mg Documented by: Divalproex Sodium (Harshil Zapata) 500 mg PO BID [facility] Last Admin: 01/30/20 21:50 Dose: 500 mg Documented by: Fluoxetine HCl (Prozac) 60 mg PO QDAY [facility] Last Admin: 01/30/20 10:26 Dose: 60 mg Documented by: Hydrochlorothiazide (Hctz) 12.5 mg PO QDAY [facility] Last Admin: 01/30/20 10:24 Dose: 12.5 mg Documented by: Lisinopril (Zestril) 40 mg PO QDAY [facility] Last Admin: 01/30/20 10:25 Dose: 40 mg Documented by: Potassium Chloride (Klor-Con 8) 8 meq PO QAM [facility] Last Admin: 01/30/20 10:24 Dose: 8 meq Documented by: Risperidone (Risperdal) 3 mg PO BID [facility] Last Admin: 01/30/20 22:57 Dose: 3 mg Documented by: Trazodone HCl (Desyrel) 50 mg PO QHS [facility] Last Admin: 01/30/20 21:48 Dose: 50 mg Documented by: Ziprasidone (Geodon) 10 mg IM Q4H PRN PRN Reason: Agitation Results - Results Labs/Vitals: Laboratory Last Values WBC 7.6 K/mm3 (4.5-11.0) 01/20/20 16:25 RBC 5.29 M/mm3 (3.65-5.03) H 01/20/20 16:25 Hgb 13.0 gm/dl (10.1-14.3) 01/20/20 16:25 Hct 40.8 % (30.3-42.9) 01/20/20 16:25 MCV 77 fl (79-97) L 01/20/20 16:25 MCH 25 pg (28-32) L 01/20/20 16:25 MCHC 32 % (30-34) 01/20/20 16:25 RDW 16.1 % (13.2-15.2) H 01/20/20 16:25 Plt Count 259 K/mm3 (140-440) 01/20/20 16:25 Lymph % (Auto) 28.6 % (13.4-35.0) 01/20/20 16:25 [place] % (Auto) 8.4 % (0.0-7.3) H 01/20/20 16:25 Eos % (Auto) 0.6 % (0.0-4.3) 01/20/20 16:25 Baso % (Auto) 0.7 % (0.0-1.8) 01/20/20 16:25 Lymph # 2.2 K/mm3 (1.2-5.4) 01/20/20 16:25 [place] # 0.6 K/mm3 (0.0-0.8) 01/20/20 16:25 Eos # 0.0 K/mm3 (0.0-0.4) 01/20/20 16:25 Baso # 0.1 K/mm3 (0.0-0.1) 01/20/20 16:25 Seg Neutrophils % 61.7 % (40.0-70.0) 01/20/20 16:25 Seg Neutrophils # 4.7 K/mm3 (1.8-7.7) 01/20/20 16:25 Sodium 139 mmol/L (137-145) 01/20/20 16:25 Potassium 3.7 mmol/L (3.6-5.0) 01/20/20 16:25 Chloride 102.3 mmol/L (98-107) 01/20/20 16:25 Carbon Dioxide 24 mmol/L (22-30) 01/20/20 16:25 Anion Gap 16 mmol/L 01/20/20 16:25 BUN 12 mg/dL (7-17) 01/20/20 16:25 Creatinine 1.0 mg/dL (0.7-1.2) 01/20/20 16:25 Estimated GFR > 60 ml/min 01/20/20 16:25 BUN/Creatinine Ratio 12 % 01/20/20 16:25 Glucose 97 mg/dL (65-100) 01/20/20 16:25 POC Glucose 126 (70-105) H 01/29/20 03:04 Hemoglobin A1c 6.2 % (4-6) H 01/20/20 16:25 Calcium 10.5 mg/dL (8.4-10.2) H 01/20/20 16:25 Total Bilirubin 0.40 mg/dL (0.1-1.2) 01/20/20 16:25 AST 15 units/L (5-40) 01/20/20 16:25 ALT 7 units/L (7-56) 01/20/20 16:25 Alkaline Phosphatase 63 units/L (35-129) 01/20/20 16:25 Total Protein 8.0 g/dL (6.3-8.2) 01/20/20 16:25 Albumin 4.1 g/dL (3.9-5) 01/20/20 16:25 Albumin/Globulin Ratio 1.1 % 01/20/20 16:25 Triglycerides 63 mg/dL (2-149) 01/20/20 16:25 Cholesterol 199 mg/dL (50-199) 01/20/20 16:25 LDL Cholesterol Direct 133 mg/dL (50-130) H 01/20/20 16:25 HDL Cholesterol 61 mg/dL (40-59) H 01/20/20 16:25 Cholesterol/HDL Ratio 3.26 % 01/20/20 16:25 TSH 1.680 mlU/mL (0.270-4.200) 01/20/20 16:25 Last Vital Signs Temp 98.8 F 01/30/20 07:37 Pulse 108 H 01/30/20 21:48 Resp 18 01/30/20 07:37 BP 153/74 01/30/20 21:48 Pulse Ox 99 01/30/20 19:28
[2020-01-31] MEDS: risperiDONE 3 MG TAB PO SCH ×2 (09:52→22:03)
[2020-01-31] MEDS: FLUoxetine 20 MG CAP PO SCH (09:52)
[2020-01-31] MEDS: DIVALPROEX DR 500 MG TAB PO SCH ×2 (09:52→22:03)
[2020-01-31] MEDS: hydroCHLOROthiazide 12.5 MG CAP PO SCH (09:53)
[2020-01-31] MEDS: POTASSIUM CHLORIDE ER 8 MEQ TAB PO SCH (09:53)
[2020-01-31] MEDS: LISINOPRIL 40 MG TAB PO SCH (09:53)
[2020-01-31] MEDS: ASPIRIN 81 MG TAB CHEW PO SCH (22:09)
[2020-01-31] MEDS: amLODIPine 5 MG TAB PO SCH (22:09)
[2020-01-31] MEDS: traZODone 50 MG TAB PO SCH (22:10)
--- NOTE | 2020-02-01 08:09 | Progress Note ---
Subjective Date of service: 02/01/20 Principal diagnosis: Paranoid Schizophrenia Subjective Comment: The patient's medical record was reviewed and the patient's progress was discussed with the nursing staff. During my interview with the patient today, she is sitting in the dayroom. She is a/o x 3. She makes fair eye contact. She is working a crossword puzzle. She greets me with "good morning." She says she feels "pretty good." The patient states, "I'm not really sleeping good. I had a nightmare." She denies SI/HI. She also denies hallucinations of any kind. Reason for continued inpatient treatment: The patient has improved significantly and it is likely she's at her baseline. Will discuss with family discharge planning to arrange for a safe discharge. Attempted to speak with the patient's daugherDotty. I called the daughter at [phone] via cell phone. She did not answer. Voice message left asking her to return call. REVIEW OF SYSTEMS Constitutional: Negative for weight loss ENT: Negative for stridor Respiratory: Negative for cough or hemoptysis All other systems reviewed and are negative MENTAL STATUS EXAMINATION General Appearance: Dressed appropriately Behavior: calm, cooperative Mood: "pretty good" Affect: Restricted Speech: Normal tone and pace Thought Process: goal directed Thought Content: Suicidal Ideation: Denies Homicidal Ideation: Denies Hallucinations: Denies Delusions: Yes Insight and Judgment: Limited Memory/Cognition: Limited Assessment Paranoid Schizophrenia Treatment Plan Patient will be admitted for inpatient psychiatric evaluation, medication adjustment and close monitoring The patient's behavior, mood, sleep and appetite will be closely monitored. Patient will be enrolled in individual and group therapeutic sessions and encouraged to attend. Patient will be provided with a safe and structured environment. Patient's physical health needs will be addressed by the Hospitalist. Hospitalist Consulted Labs including CBC, CMP, Lipid profile and Hemoglobin A1C ordered Social Assessment will be completed and the Home Attendant will work with patient and family to ensure a suitable and safe disposition Medication adjustment will be made as clinically indicated Usual Wellness Sabianist/Preservation: No changes made today The patient agreed on the treatment plan, understood the risk, benefit, alternative treatment, potential consequence of no treatment, and gave informed consent. Estimated period of time patient will need to remain in the hospital: [1] Plan for post-hospital care: [Outpatient] Medications and Allergies Allergies Allergy/AdvReac Type Severity Reaction Status Date / Time No Known Allergies Allergy Verified 01/19/20 11:50 Home Medications Medication Instructions Recorded Confirmed Last Taken Type Amlodipine Besylate [Norvasc] 5 mg PO QHS 11/26/19 01/21/20 Unknown History Aspirin [Aspirin BABY CHEW TAB] 81 mg PO QHS 11/26/19 01/21/20 Unknown History Potassium Chloride [K-Dur] 8 meq PO QAM 11/26/19 01/21/20 Unknown History hydroCHLOROthiazide [HCTZ] 12.5 mg PO QDAY 11/26/19 01/20/20 Unknown History lisinopriL [Zestril TAB] 40 mg PO QDAY 11/26/19 01/20/20 Unknown History FLUoxetine [PROzac] 40 mg PO QDAY #60 capsule 12/13/19 01/20/20 Unknown Rx Paliperidone Palmitate(Nf) [Invega 234 mg IM QMONTH 01/25/20 01/25/20 12/26/19 10:00 History Sustenna(Nf)] Divalproex Dr [Harshil Zapata] 500 mg PO BID #60 tablet 01/30/20 Unknown Rx FLUoxetine [PROzac] 40 mg PO QDAY #60 capsule 01/30/20 Unknown Rx risperiDONE [RisperDAL] 3 mg PO BID #60 tablet 01/30/20 Unknown Rx traZODone [Desyrel] 50 mg PO QHS #30 tablet 01/30/20 Unknown Rx Active Meds: Active Medications Amlodipine Besylate (Amlodipine) 5 mg PO QHS [facility] Last Admin: 01/31/20 22:09 Dose: 5 mg Documented by: Aspirin (Baby Aspirin) 81 mg PO QHS [facility] Last Admin: 01/31/20 22:09 Dose: 81 mg Documented by: Divalproex Sodium (Harshil Zapata) 500 mg PO BID [facility] Last Admin: 01/31/20 22:03 Dose: 500 mg Documented by: Fluoxetine HCl (Prozac) 60 mg PO QDAY [facility] Last Admin: 01/31/20 09:52 Dose: 60 mg Documented by: Hydrochlorothiazide (Hctz) 12.5 mg PO QDAY [facility] Last Admin: 01/31/20 09:53 Dose: 12.5 mg Documented by: Lisinopril (Zestril) 40 mg PO QDAY [facility] Last Admin: 01/31/20 09:53 Dose: 40 mg Documented by: Potassium Chloride (Klor-Con 8) 8 meq PO QAM [facility] Last Admin: 01/31/20 09:53 Dose: 8 meq Documented by: Risperidone (Risperdal) 3 mg PO BID [facility] Last Admin: 01/31/20 22:03 Dose: 3 mg Documented by: Trazodone HCl (Desyrel) 50 mg PO QHS [facility] Last Admin: 01/31/20 22:10 Dose: 50 mg Documented by: Ziprasidone (Geodon) 10 mg IM Q4H PRN PRN Reason: Agitation Results - Results Labs/Vitals: Laboratory Last Values WBC 7.6 K/mm3 (4.5-11.0) 01/20/20 16:25 RBC 5.29 M/mm3 (3.65-5.03) H 01/20/20 16:25 Hgb 13.0 gm/dl (10.1-14.3) 01/20/20 16:25 Hct 40.8 % (30.3-42.9) 01/20/20 16:25 MCV 77 fl (79-97) L 01/20/20 16:25 MCH 25 pg (28-32) L 01/20/20 16:25 MCHC 32 % (30-34) 01/20/20 16:25 RDW 16.1 % (13.2-15.2) H 01/20/20 16:25 Plt Count 259 K/mm3 (140-440) 01/20/20 16:25 Lymph % (Auto) 28.6 % (13.4-35.0) 01/20/20 16:25 [place] % (Auto) 8.4 % (0.0-7.3) H 01/20/20 16:25 Eos % (Auto) 0.6 % (0.0-4.3) 01/20/20 16:25 Baso % (Auto) 0.7 % (0.0-1.8) 01/20/20 16:25 Lymph # 2.2 K/mm3 (1.2-5.4) 01/20/20 16:25 [place] # 0.6 K/mm3 (0.0-0.8) 01/20/20 16:25 Eos # 0.0 K/mm3 (0.0-0.4) 01/20/20 16:25 Baso # 0.1 K/mm3 (0.0-0.1) 01/20/20 16:25 Seg Neutrophils % 61.7 % (40.0-70.0) 01/20/20 16:25 Seg Neutrophils # 4.7 K/mm3 (1.8-7.7) 01/20/20 16:25 Sodium 139 mmol/L (137-145) 01/20/20 16:25 Potassium 3.7 mmol/L (3.6-5.0) 01/20/20 16:25 Chloride 102.3 mmol/L (98-107) 01/20/20 16:25 Carbon Dioxide 24 mmol/L (22-30) 01/20/20 16:25 Anion Gap 16 mmol/L 01/20/20 16:25 BUN 12 mg/dL (7-17) 01/20/20 16:25 Creatinine 1.0 mg/dL (0.7-1.2) 01/20/20 16:25 Estimated GFR > 60 ml/min 01/20/20 16:25 BUN/Creatinine Ratio 12 % 01/20/20 16:25 Glucose 97 mg/dL (65-100) 01/20/20 16:25 POC Glucose 126 (70-105) H 01/29/20 03:04 Hemoglobin A1c 6.2 % (4-6) H 01/20/20 16:25 Calcium 10.5 mg/dL (8.4-10.2) H 01/20/20 16:25 Total Bilirubin 0.40 mg/dL (0.1-1.2) 01/20/20 16:25 AST 15 units/L (5-40) 01/20/20 16:25 ALT 7 units/L (7-56) 01/20/20 16:25 Alkaline Phosphatase 63 units/L (35-129) 01/20/20 16:25 Total Protein 8.0 g/dL (6.3-8.2) 01/20/20 16:25 Albumin 4.1 g/dL (3.9-5) 01/20/20 16:25 Albumin/Globulin Ratio 1.1 % 01/20/20 16:25 Triglycerides 63 mg/dL (2-149) 01/20/20 16:25 Cholesterol 199 mg/dL (50-199) 01/20/20 16:25 LDL Cholesterol Direct 133 mg/dL (50-130) H 01/20/20 16:25 HDL Cholesterol 61 mg/dL (40-59) H 01/20/20 16:25 Cholesterol/HDL Ratio 3.26 % 01/20/20 16:25 TSH 1.680 mlU/mL (0.270-4.200) 01/20/20 16:25 Last Vital Signs Temp 98.4 F 01/31/20 07:45 Pulse 98 H 01/31/20 22:09 Resp 18 01/31/20 07:45 BP 138/62 01/31/20 22:09 Pulse Ox 99 01/31/20 07:45
[2020-02-01] MEDS ORDERED: FLUoxetine 10 MG TAB PO SCH (10:00)
[2020-02-01] MEDS ORDERED: FLUoxetine 20 MG CAP PO SCH (10:00)
[2020-02-01] MEDS: risperiDONE 3 MG TAB PO SCH ×2 (10:31→21:12)
[2020-02-01] MEDS: hydroCHLOROthiazide 12.5 MG CAP PO SCH (10:35)
[2020-02-01] MEDS: LISINOPRIL 40 MG TAB PO SCH (10:35)
[2020-02-01] MEDS: POTASSIUM CHLORIDE ER 8 MEQ TAB PO SCH (10:37)
[2020-02-01] MEDS: DIVALPROEX DR 500 MG TAB PO SCH ×2 (10:40→21:12)
[2020-02-01] MEDS: FLUoxetine 20 MG CAP PO SCH (10:41)
[2020-02-01] MEDS: amLODIPine 5 MG TAB PO SCH (21:12)
[2020-02-01] MEDS: ASPIRIN 81 MG TAB CHEW PO SCH (21:13)
[2020-02-01] MEDS: traZODone 50 MG TAB PO SCH (21:13)
--- NOTE | 2020-02-02 09:09 | Progress Note ---
Subjective Date of service: 02/02/20 Principal diagnosis: Paranoid Schizophrenia Subjective Comment: The patient's medical record was reviewed and the patient's progress was discussed with the nursing staff. During my interview with the patient today, she is sitting in the dayroom. She is a/o x 3. She makes fair eye contact. She is coloring on some pages. She says her mood is "fine." She denies SI/HI. She also denies hallucinations of any kind. I informed the patient that she would be discharge home tomorrow, she stated "I have my own home, not a personal [place] [facility] facility." She also states, "I have two PhD dissertations." Reason for continued inpatient treatment: The patient has some delusions, but has improved significantly and it is likely she's at her baseline. Will to plan discharge tomorrow Spoke with Dotty chen at [phone] via cell phone. I spoke with her about the patient's progress and informed her of discharge home tomorrow. The daughter is in agreement with plan. REVIEW OF SYSTEMS Constitutional: Negative for weight loss ENT: Negative for stridor Respiratory: Negative for cough or hemoptysis All other systems reviewed and are negative MENTAL STATUS EXAMINATION General Appearance: Dressed appropriately Behavior: calm, cooperative Mood: "fine" Affect: Restricted Speech: Normal tone and pace Thought Process: goal directed Thought Content: Suicidal Ideation: Denies Homicidal Ideation: Denies Hallucinations: Denies Delusions: Yes Insight and Judgment: Limited Memory/Cognition: Limited Assessment Paranoid Schizophrenia Treatment Plan Patient will be admitted for inpatient psychiatric evaluation, medication adjustment and close monitoring The patient's behavior, mood, sleep and appetite will be closely monitored. Patient will be enrolled in individual and group therapeutic sessions and encouraged to attend. Patient will be provided with a safe and structured environment. Patient's physical health needs will be addressed by the Hospitalist. Hospitalist Consulted Labs including CBC, CMP, Lipid profile and Hemoglobin A1C ordered Social Assessment will be completed and the Wire Straightener will work with patient and family to ensure a suitable and safe disposition Medication adjustment will be made as clinically indicated Usual Wellness Congregational/Preservation: No changes made today The patient agreed on the treatment plan, understood the risk, benefit, alternative treatment, potential consequence of no treatment, and gave informed consent. Estimated period of time patient will need to remain in the hospital: [1] Plan for post-hospital care: [Outpatient] Medications and Allergies Allergies Allergy/AdvReac Type Severity Reaction Status Date / Time No Known Allergies Allergy Verified 01/19/20 11:50 Home Medications Medication Instructions Recorded Confirmed Last Taken Type Amlodipine Besylate [Norvasc] 5 mg PO QHS 11/26/19 01/21/20 Unknown History Aspirin [Aspirin BABY CHEW TAB] 81 mg PO QHS 11/26/19 01/21/20 Unknown History Potassium Chloride [K-Dur] 8 meq PO QAM 11/26/19 01/21/20 Unknown History hydroCHLOROthiazide [HCTZ] 12.5 mg PO QDAY 11/26/19 01/20/20 Unknown History lisinopriL [Zestril TAB] 40 mg PO QDAY 11/26/19 01/20/20 Unknown History FLUoxetine [PROzac] 40 mg PO QDAY #60 capsule 12/13/19 01/20/20 Unknown Rx Paliperidone Palmitate [Invega 234 mg IM QMONTH 01/25/20 01/25/20 12/26/19 10:00 History Sustenna] Divalproex Dr [Harshil Zapata] 500 mg PO BID #60 tablet 01/30/20 Unknown Rx FLUoxetine [PROzac] 40 mg PO QDAY #60 capsule 01/30/20 Unknown Rx risperiDONE [RisperDAL] 3 mg PO BID #60 tablet 01/30/20 Unknown Rx traZODone [Desyrel] 50 mg PO QHS #30 tablet 01/30/20 Unknown Rx Active Meds: Active Medications Amlodipine Besylate (Amlodipine) 5 mg PO QHS [facility] Last Admin: 02/01/20 21:12 Dose: 5 mg Documented by: Aspirin (Baby Aspirin) 81 mg PO QHS [facility] Last Admin: 02/01/20 21:13 Dose: 81 mg Documented by: Divalproex Sodium (Harshil Zapata) 500 mg PO BID [facility] Last Admin: 02/01/20 21:12 Dose: 500 mg Documented by: Fluoxetine HCl (Prozac) 60 mg PO QDAY [facility] Last Admin: 02/01/20 10:41 Dose: 60 mg Documented by: Hydrochlorothiazide (Hctz) 12.5 mg PO QDAY [facility] Last Admin: 02/01/20 10:35 Dose: 12.5 mg Documented by: Lisinopril (Zestril) 40 mg PO QDAY [facility] Last Admin: 02/01/20 10:35 Dose: 40 mg Documented by: Potassium Chloride (Klor-Con 8) 8 meq PO QAM [facility] Last Admin: 02/01/20 10:37 Dose: 8 meq Documented by: Risperidone (Risperdal) 3 mg PO BID [facility] Last Admin: 02/01/20 21:12 Dose: 3 mg Documented by: Trazodone HCl (Desyrel) 50 mg PO QHS [facility] Last Admin: 02/01/20 21:13 Dose: 50 mg Documented by: Ziprasidone (Geodon) 10 mg IM Q4H PRN PRN Reason: Agitation Results - Results Labs/Vitals: Laboratory Last Values WBC 7.6 K/mm3 (4.5-11.0) 01/20/20 16:25 RBC 5.29 M/mm3 (3.65-5.03) H 01/20/20 16:25 Hgb 13.0 gm/dl (10.1-14.3) 01/20/20 16:25 Hct 40.8 % (30.3-42.9) 01/20/20 16:25 MCV 77 fl (79-97) L 01/20/20 16:25 MCH 25 pg (28-32) L 01/20/20 16:25 MCHC 32 % (30-34) 01/20/20 16:25 RDW 16.1 % (13.2-15.2) H 01/20/20 16:25 Plt Count 259 K/mm3 (140-440) 01/20/20 16:25 Lymph % (Auto) 28.6 % (13.4-35.0) 01/20/20 16:25 [place] % (Auto) 8.4 % (0.0-7.3) H 01/20/20 16:25 Eos % (Auto) 0.6 % (0.0-4.3) 01/20/20 16:25 Baso % (Auto) 0.7 % (0.0-1.8) 01/20/20 16:25 Lymph # 2.2 K/mm3 (1.2-5.4) 01/20/20 16:25 [place] # 0.6 K/mm3 (0.0-0.8) 01/20/20 16:25 Eos # 0.0 K/mm3 (0.0-0.4) 01/20/20 16:25 Baso # 0.1 K/mm3 (0.0-0.1) 01/20/20 16:25 Seg Neutrophils % 61.7 % (40.0-70.0) 01/20/20 16:25 Seg Neutrophils # 4.7 K/mm3 (1.8-7.7) 01/20/20 16:25 Sodium 139 mmol/L (137-145) 01/20/20 16:25 Potassium 3.7 mmol/L (3.6-5.0) 01/20/20 16:25 Chloride 102.3 mmol/L (98-107) 01/20/20 16:25 Carbon Dioxide 24 mmol/L (22-30) 01/20/20 16:25 Anion Gap 16 mmol/L 01/20/20 16:25 BUN 12 mg/dL (7-17) 01/20/20 16:25 Creatinine 1.0 mg/dL (0.7-1.2) 01/20/20 16:25 Estimated GFR > 60 ml/min 01/20/20 16:25 BUN/Creatinine Ratio 12 % 01/20/20 16:25 Glucose 97 mg/dL (65-100) 01/20/20 16:25 POC Glucose 126 (70-105) H 01/29/20 03:04 Hemoglobin A1c 6.2 % (4-6) H 01/20/20 16:25 Calcium 10.5 mg/dL (8.4-10.2) H 01/20/20 16:25 Total Bilirubin 0.40 mg/dL (0.1-1.2) 01/20/20 16:25 AST 15 units/L (5-40) 01/20/20 16:25 ALT 7 units/L (7-56) 01/20/20 16:25 Alkaline Phosphatase 63 units/L (35-129) 01/20/20 16:25 Total Protein 8.0 g/dL (6.3-8.2) 01/20/20 16:25 Albumin 4.1 g/dL (3.9-5) 01/20/20 16:25 Albumin/Globulin Ratio 1.1 % 01/20/20 16:25 Triglycerides 63 mg/dL (2-149) 01/20/20 16:25 Cholesterol 199 mg/dL (50-199) 01/20/20 16:25 LDL Cholesterol Direct 133 mg/dL (50-130) H 01/20/20 16:25 HDL Cholesterol 61 mg/dL (40-59) H 01/20/20 16:25 Cholesterol/HDL Ratio 3.26 % 01/20/20 16:25 TSH 1.680 mlU/mL (0.270-4.200) 01/20/20 16:25 Last Vital Signs Temp 98.6 F 02/01/20 19:48 Pulse 103 H 02/01/20 21:12 Resp 20 02/01/20 19:48 BP 122/61 02/01/20 21:12 Pulse Ox 98 02/01/20 19:48
[2020-02-02] MEDS: FLUoxetine 20 MG CAP PO SCH (10:01)
[2020-02-02] MEDS: POTASSIUM CHLORIDE ER 8 MEQ TAB PO SCH (10:02)
[2020-02-02] MEDS: hydroCHLOROthiazide 12.5 MG CAP PO SCH (10:19)
[2020-02-02] MEDS: LISINOPRIL 40 MG TAB PO SCH (10:19)
[2020-02-02] MEDS: risperiDONE 3 MG TAB PO SCH ×2 (10:20→21:57)
--- NOTE | 2020-02-02 11:13 | XRay Report ---
CHEST 1 VIEW INDICATION: r/o TB. COMPARISON: none FINDINGS: SUPPORT DEVICES: None. HEART / MEDIASTINUM: No significant abnormality. LUNGS / PLEURA: No significant pulmonary or pleural abnormality. No pneumothorax. ADDITIONAL FINDINGS: IMPRESSION: 1. No acute cardiopulmonary disease Signer Name: Diogenes Rosales MD Signed: 02/02/2020 11:09 AM Workstation Name: [id number]
[2020-02-02] MEDS: DIVALPROEX DR 500 MG TAB PO SCH ×2 (13:21→21:56)
[2020-02-02] MEDS: amLODIPine 5 MG TAB PO SCH (21:55)
[2020-02-02] MEDS: ASPIRIN 81 MG TAB CHEW PO SCH (21:56)
[2020-02-02] MEDS: traZODone 50 MG TAB PO SCH (21:57)
--- NOTE | 2020-02-03 06:42 | Progress Note ---
Subjective Date of service: 02/03/20 Principal diagnosis: Paranoid Schizophrenia Subjective Comment: Per Nurse Note: Patient has been awake all night. She has been quiet. She has been sitting on her bed playing with her belongings. She states she is waiting to go home. Will continue to monitor patient for safety. Per Provider Patient seen by me this A.M. was awake in bed. Says she knows shes leaving this morning, says she did not sleep good at night, and this was her first poor night rest and doesnt know why. Patient denies Auditory and visual Hallucinations. She denies SI or HI and also describes her mood today as good. Reason for continued inpatient treatment: Patient accepted to facility pending COVID test. MENTAL STATUS EXAMINATION General Appearance and Behavior: Age appropriate, good hygiene, wearing appropriate clothes, good, cooperative with questioning and polite Cooperation: Participating/engaged Psychomotor Behavior: unremarkable and within normal limits Mood: good Affect and affective range:congruent with mood Thought Process: Fluent/Logical Thought Content: slight delusions. Speech: Normal volume Intellectual Functioning: Average Suicidal Ideation: Denies SI Homicidal Ideation: Denies HI Impulse Control: Unimpaired Insight and Judgment: Good insight Memory: Normal Attention: Normal Orientation: Alert, oriented Assessment and Plan - Patient Problems (1) Schizophrenia, paranoid Current Visit: Yes Status: Acute (2) Psychotic disorder with delusions Current Visit: Yes Status: Acute Treatment Plan Invega second dose in 1 week. The patient's behavior, mood, sleep and appetite will be closely monitored. Patient will be enrolled in individual and group therapeutic sessions and encouraged to attend. Patient will be provided with a safe and structured environment. Patient's physical health needs will be addressed by the Hospitalist. Hospitalist Consulted Labs including CBC, CMP, Lipid profile and Hemoglobin A1C ordered Social Assessment will be completed and the Analytic Programmer will work with patient and family to ensure a suitable and safe disposition Medication adjustment will be made as clinically indicated Usual Wellness Yarsani/Preservation: Restarted Home medications Geodon 10mg q4h prn agitation or refusal of oral antipsychotics The patient agreed on the treatment plan, understood the risk, benefit, alterna tive treatment, potential consequence of no treatment, and gave informed consent. - Certification Statement This is an acknowledgement statement that Siobhan Guido is a 64y/o female who requires inpatient psychiatric admission for treatment which could reasonably be expected to improve the patient's condition for Paranoid Schizophrenia. Estimated period of time patient will need to remain in the hospital: [0] Plan for post-hospital care: [ Outpatient] Assessment and Plan - Patient Problems (1) Schizophrenia, paranoid Current Visit: Yes Status: Acute (2) Psychotic disorder with delusions Current Visit: Yes Status: Acute Medications and Allergies Allergies Allergy/AdvReac Type Severity Reaction Status Date / Time No Known Allergies Allergy Verified 01/19/20 11:50 Home Medications Medication Instructions Recorded Confirmed Last Taken Type Amlodipine Besylate [Norvasc] 5 mg PO QHS 11/26/19 01/21/20 Unknown History Aspirin [Aspirin BABY CHEW TAB] 81 mg PO QHS 11/26/19 01/21/20 Unknown History Potassium Chloride [K-Dur] 8 meq PO QAM 11/26/19 01/21/20 Unknown History hydroCHLOROthiazide [HCTZ] 12.5 mg PO QDAY 11/26/19 01/20/20 Unknown History lisinopriL [Zestril TAB] 40 mg PO QDAY 11/26/19 01/20/20 Unknown History FLUoxetine [PROzac] 40 mg PO QDAY #60 capsule 12/13/19 01/20/20 Unknown Rx Paliperidone Palmitate [Invega 234 mg IM QMONTH 01/25/20 01/25/20 12/26/19 10:00 History Sustenna] Divalproex Dr [Harshil Zapata] 500 mg PO BID #60 tablet 01/30/20 Unknown Rx FLUoxetine [PROzac] 40 mg PO QDAY #60 capsule 01/30/20 Unknown Rx risperiDONE [RisperDAL] 3 mg PO BID #60 tablet 01/30/20 Unknown Rx traZODone [Desyrel] 50 mg PO QHS #30 tablet 01/30/20 Unknown Rx Active Meds: Active Medications Amlodipine Besylate (Amlodipine) 5 mg PO QHS [facility] Last Admin: 02/02/20 21:55 Dose: 5 mg Documented by: Aspirin (Baby Aspirin) 81 mg PO QHS [facility] Last Admin: 02/02/20 21:56 Dose: 81 mg Documented by: Divalproex Sodium (Harshil Zapata) 500 mg PO BID [facility] Last Admin: 02/02/20 21:56 Dose: 500 mg Documented by: Fluoxetine HCl (Prozac) 60 mg PO QDAY [facility] Last Admin: 02/02/20 10:01 Dose: 60 mg Documented by: Hydrochlorothiazide (Hctz) 12.5 mg PO QDAY [facility] Last Admin: 02/02/20 10:19 Dose: 12.5 mg Documented by: Lisinopril (Zestril) 40 mg PO QDAY [facility] Last Admin: 02/02/20 10:19 Dose: 40 mg Documented by: Potassium Chloride (Klor-Con 8) 8 meq PO QAM [facility] Last Admin: 02/02/20 10:02 Dose: 8 meq Documented by: Risperidone (Risperdal) 3 mg PO BID [facility] Last Admin: 02/02/20 21:57 Dose: 3 mg Documented by: Trazodone HCl (Desyrel) 50 mg PO QHS [facility] Last Admin: 02/02/20 21:57 Dose: 50 mg Documented by: Ziprasidone (Geodon) 10 mg IM Q4H PRN PRN Reason: Agitation Results - Results Labs/Vitals: Laboratory Last Values WBC 7.6 K/mm3 (4.5-11.0) 01/20/20 16:25 RBC 5.29 M/mm3 (3.65-5.03) H 01/20/20 16:25 Hgb 13.0 gm/dl (10.1-14.3) 01/20/20 16:25 Hct 40.8 % (30.3-42.9) 01/20/20 16:25 MCV 77 fl (79-97) L 01/20/20 16:25 MCH 25 pg (28-32) L 01/20/20 16:25 MCHC 32 % (30-34) 01/20/20 16:25 RDW 16.1 % (13.2-15.2) H 01/20/20 16:25 Plt Count 259 K/mm3 (140-440) 01/20/20 16:25 Lymph % (Auto) 28.6 % (13.4-35.0) 01/20/20 16:25 [place] % (Auto) 8.4 % (0.0-7.3) H 01/20/20 16:25 Eos % (Auto) 0.6 % (0.0-4.3) 01/20/20 16:25 Baso % (Auto) 0.7 % (0.0-1.8) 01/20/20 16:25 Lymph # 2.2 K/mm3 (1.2-5.4) 01/20/20 16:25 [place] # 0.6 K/mm3 (0.0-0.8) 01/20/20 16:25 Eos # 0.0 K/mm3 (0.0-0.4) 01/20/20 16:25 Baso # 0.1 K/mm3 (0.0-0.1) 01/20/20 16:25 Seg Neutrophils % 61.7 % (40.0-70.0) 01/20/20 16:25 Seg Neutrophils # 4.7 K/mm3 (1.8-7.7) 01/20/20 16:25 Sodium 139 mmol/L (137-145) 01/20/20 16:25 Potassium 3.7 mmol/L (3.6-5.0) 01/20/20 16:25 Chloride 102.3 mmol/L (98-107) 01/20/20 16:25 Carbon Dioxide 24 mmol/L (22-30) 01/20/20 16:25 Anion Gap 16 mmol/L 01/20/20 16:25 BUN 12 mg/dL (7-17) 01/20/20 16:25 Creatinine 1.0 mg/dL (0.7-1.2) 01/20/20 16:25 Estimated GFR > 60 ml/min 01/20/20 16:25 BUN/Creatinine Ratio 12 % 01/20/20 16:25 Glucose 97 mg/dL (65-100) 01/20/20 16:25 POC Glucose 126 (70-105) H 01/29/20 03:04 Hemoglobin A1c 6.2 % (4-6) H 01/20/20 16:25 Calcium 10.5 mg/dL (8.4-10.2) H 01/20/20 16:25 Total Bilirubin 0.40 mg/dL (0.1-1.2) 01/20/20 16:25 AST 15 units/L (5-40) 01/20/20 16:25 ALT 7 units/L (7-56) 01/20/20 16:25 Alkaline Phosphatase 63 units/L (35-129) 01/20/20 16:25 Total Protein 8.0 g/dL (6.3-8.2) 01/20/20 16:25 Albumin 4.1 g/dL (3.9-5) 01/20/20 16:25 Albumin/Globulin Ratio 1.1 % 01/20/20 16:25 Triglycerides 63 mg/dL (2-149) 01/20/20 16:25 Cholesterol 199 mg/dL (50-199) 01/20/20 16:25 LDL Cholesterol Direct 133 mg/dL (50-130) H 01/20/20 16:25 HDL Cholesterol 61 mg/dL (40-59) H 01/20/20 16:25 Cholesterol/HDL Ratio 3.26 % 01/20/20 16:25 TSH 1.680 mlU/mL (0.270-4.200) 01/20/20 16:25 Last Vital Signs Temp 98.3 F 02/02/20 19:37 Pulse 97 H 02/02/20 21:55 Resp 16 02/02/20 19:37 BP 136/64 02/02/20 21:55 Pulse Ox 98 02/02/20 19:38
[2020-02-03] MEDS: DIVALPROEX DR 500 MG TAB PO SCH (10:31)
[2020-02-03] MEDS: FLUoxetine 20 MG CAP PO SCH (10:32)
[2020-02-03] MEDS: risperiDONE 3 MG TAB PO SCH (10:32)
[2020-02-03] MEDS: POTASSIUM CHLORIDE ER 8 MEQ TAB PO SCH (10:33)
[2020-02-03] MEDS: hydroCHLOROthiazide 12.5 MG CAP PO SCH (10:56)
[2020-02-03] MEDS: LISINOPRIL 40 MG TAB PO SCH (10:57)
[2020-02-03 10:58] VITALS: BP 152/71
--- NOTE | 2020-02-03 13:07 | Discharge Summary ---
Providers - Providers Date of Admission: 01/19/20 18:45 Date of discharge: 02/03/20 Attending physician: LORIE LIU MD 01/19/20 18:45 Consult to Physician [CONS] Routine Comment: Consulting Provider: KAUSHAL BRIONES Physician Instructions: Reason For Exam: manage medical conditions Primary care physician: [employer] Hospitalization Reason for admission: Behavioral disturbance Condition: Good Hospital course: The patient was provided inpatient psychiatric treatment with safe and suppor tive care, medication adjustment, adverse effect monitoring, medical evaluations, medical treatments, assessment and psycho-education. The patient's mood, cognition, behavior, moral support are improved and stabilized. St the time of discharge, the patient had no endangering behavior and no debilitating adverse effects. The patient agreed on potential consequences of no treatment and gave informed consent. Disposition: - TO HOME OR SELFCARE Allergies/Adverse Reactions: Allergies No Known Allergies Allergy (Verified 01/19/20 11:50) Vital Signs: Last Vital Signs Temp 98.3 F 02/02/20 19:37 Pulse 100 H 02/03/20 10:57 Resp 16 02/02/20 19:37 BP 152/71 02/03/20 10:57 Pulse Ox 98 02/02/20 19:38 Last Lab: Laboratory Last Values WBC 7.6 K/mm3 (4.5-11.0) 01/20/20 16:25 RBC 5.29 M/mm3 (3.65-5.03) H 01/20/20 16:25 Hgb 13.0 gm/dl (10.1-14.3) 01/20/20 16:25 Hct 40.8 % (30.3-42.9) 01/20/20 16:25 MCV 77 fl (79-97) L 01/20/20 16:25 MCH 25 pg (28-32) L 01/20/20 16:25 MCHC 32 % (30-34) 01/20/20 16:25 RDW 16.1 % (13.2-15.2) H 01/20/20 16:25 Plt Count 259 K/mm3 (140-440) 01/20/20 16:25 Lymph % (Auto) 28.6 % (13.4-35.0) 01/20/20 16:25 [place] % (Auto) 8.4 % (0.0-7.3) H 01/20/20 16:25 Eos % (Auto) 0.6 % (0.0-4.3) 01/20/20 16:25 Baso % (Auto) 0.7 % (0.0-1.8) 01/20/20 16:25 Lymph # 2.2 K/mm3 (1.2-5.4) 01/20/20 16:25 [place] # 0.6 K/mm3 (0.0-0.8) 01/20/20 16:25 Eos # 0.0 K/mm3 (0.0-0.4) 01/20/20 16:25 Baso # 0.1 K/mm3 (0.0-0.1) 01/20/20 16:25 Seg Neutrophils % 61.7 % (40.0-70.0) 01/20/20 16:25 Seg Neutrophils # 4.7 K/mm3 (1.8-7.7) 01/20/20 16:25 Sodium 139 mmol/L (137-145) 01/20/20 16:25 Potassium 3.7 mmol/L (3.6-5.0) 01/20/20 16:25 Chloride 102.3 mmol/L (98-107) 01/20/20 16:25 Carbon Dioxide 24 mmol/L (22-30) 01/20/20 16:25 Anion Gap 16 mmol/L 01/20/20 16:25 BUN 12 mg/dL (7-17) 01/20/20 16:25 Creatinine 1.0 mg/dL (0.7-1.2) 01/20/20 16:25 Estimated GFR > 60 ml/min 01/20/20 16:25 BUN/Creatinine Ratio 12 % 01/20/20 16:25 Glucose 97 mg/dL (65-100) 01/20/20 16:25 POC Glucose 126 (70-105) H 01/29/20 03:04 Hemoglobin A1c 6.2 % (4-6) H 01/20/20 16:25 Calcium 10.5 mg/dL (8.4-10.2) H 01/20/20 16:25 Total Bilirubin 0.40 mg/dL (0.1-1.2) 01/20/20 16:25 AST 15 units/L (5-40) 01/20/20 16:25 ALT 7 units/L (7-56) 01/20/20 16:25 Alkaline Phosphatase 63 units/L (35-129) 01/20/20 16:25 Total Protein 8.0 g/dL (6.3-8.2) 01/20/20 16:25 Albumin 4.1 g/dL (3.9-5) 01/20/20 16:25 Albumin/Globulin Ratio 1.1 % 01/20/20 16:25 Triglycerides 63 mg/dL (2-149) 01/20/20 16:25 Cholesterol 199 mg/dL (50-199) 01/20/20 16:25 LDL Cholesterol Direct 133 mg/dL (50-130) H 01/20/20 16:25 HDL Cholesterol 61 mg/dL (40-59) H 01/20/20 16:25 Cholesterol/HDL Ratio 3.26 % 01/20/20 16:25 TSH 1.680 mlU/mL (0.270-4.200) 01/20/20 16:25 - Discharge Diagnoses (1) Schizophrenia, paranoid Status: Acute (2) Psychotic disorder with delusions Status: Acute Core Measure Documentation - Palliative Care Palliative Care/ Comfort Measures: Not Applicable - Core Measures Any of the following diagnoses?: none Exam - Constitutional Vitals: Temp Pulse Resp BP Pulse Ox 98.3 F 100 H 16 152/71 98 02/02/20 19:37 02/03/20 10:57 02/02/20 19:37 02/03/20 10:57 02/02/20 19:38 - EENT Eyes: Present: PERRL, EOM intact ENT: hearing intact, clear oral mucosa - Neck Neck: Present: supple, normal ROM - Respiratory Respiratory effort: normal - Abdominal Female genitourinary: Present: normal Plan Activity: no restrictions Care Plan Goals: maintain good and stable mental health Plan of Treatment: The patient should be compliant with medications, not to use drugs, and not to drink alcohol. The patient understands that if suicidal ideas, homicidal ideas or any endangering feeling arise, the patient should seek assistance including, but not limited to crisis hotline, and emergency room. Follow up with: PRIMARY CARE, [Primary Care Provider] - 7 Days Prescriptions: traZODone [Desyrel] 50 mg PO QHS #[address] [Harshil Zapata] 500 mg PO BID #60 tablet FLUoxetine [PROzac] 40 mg PO QDAY #60 capsule risperiDONE [RisperDAL] 3 mg PO BID #60 tablet
== END 2020-02-03 15:50 | disposition home or self-care (01) | DRG 885 ==
LOC: 3A 17:53 → UNDOADMIN 17:53 → 5A 18:45
PROVIDERS: ADMIT Psychiatry & Neurology Psychiatry; ATTEND Psychiatry & Neurology Psychiatry
DX: F20.0 Paranoid schizophrenia (principal); I10 Essential (primary) hypertension; M19.90 Unspecified osteoarthritis, unspecified site; E66.9 Obesity, unspecified; M79.7 Fibromyalgia; F29 Unspecified psychosis not due to a substance or known physiological condition; Z79.82 Long term (current) use of aspirin; Z79.899 Other long term (current) drug therapy; Z68.36 Body mass index [BMI] 36.0-36.9, adult
CPT/HCPCS: 36415; 71045; 80048; 80053; 80061; 80164; 80307; 80320; 81001; 82962; 83036; 84443; 85025; 96372; G0378; G0480; J1200; J2426; J3486; U0003